=== PATIENT | male | born 1940 | race Caucasian/White ===

== ENCOUNTER 2019-12-15 11:42 | Emergency (ER) | payer MEDICARE, OTHER ==
[2019-12-15] MEDS ORDERED: ACETAMINOPHEN 325 MG TABLET PO ONE (11:57)
--- NOTE | 2019-12-15 12:24 | EKG REPORT ---
SEVERITY:- NORMAL ECG - SINUS RHYTHM : Confirmed by: Marsha Flores MD 15-Dec-2019 12:24:13
[2019-12-15 12:26] LABS: HEMATOCRIT 48.2 % (37.9-51.0); HEMOGLOBIN 16.9 g/dL (13.5-17.0); MEAN CORPUSCULAR HEMOGLOBIN 31.7 pg (27.0-33.4); MEAN CORPUSCULAR HGB CONC 35.1 g/dL (32.0-36.0); MEAN CORPUSCULAR VOLUME 90 fl (80-97); PLATELET COUNT 164 10^3/uL (150-450); RED BLOOD COUNT 5.33 10^6/uL (4.35-5.55); RED CELL DISTRIBUTION WIDTH 13.5 % (11.5-14.0)
[2019-12-15 12:40] LABS: ALBUMIN 4.7 g/dL (3.5-5.0); ALKALINE PHOSPHATASE 60 U/L (38-126); ANION GAP 8 (5-19); ASPARTATE AMINO TRANSFERASE 33 U/L (17-59); BILIRUBIN,DIRECT 0.1 mg/dL (0.0-0.4); BILIRUBIN,TOTAL 1.1 mg/dL (0.2-1.3); BLOOD UREA NITROGEN 20 mg/dL (7-20); CALCIUM 9.7 mg/dL (8.4-10.2); CARBON DIOXIDE 28 mmol/L (22-30); CHLORIDE 99 mmol/L (98-107); GLUCOSE 116 mg/dL (75-110); POTASSIUM 4.4 mmol/L (3.6-5.0)
[2019-12-15 12:43] LABS: INTERNATIONAL RATION (INR) 0.97; PROTHROMBIN TIME 13.1 SEC (11.4-15.4)
--- NOTE | 2019-12-15 12:50 | RADIOLOGY REPORT (SQ) ---
EXAM DESCRIPTION: CHEST SINGLE VIEW IMAGES COMPLETED DATE/TIME: 12/15/2019 12:40 pm REASON FOR STUDY: weakness COMPARISON: None. EXAM PARAMETERS: NUMBER OF VIEWS: One view. TECHNIQUE: Single frontal radiographic view of the chest acquired. RADIATION DOSE: NA LIMITATIONS: None. FINDINGS: LUNGS AND PLEURA: No opacities, masses or pneumothorax. No pleural effusion. MEDIASTINUM AND HILAR STRUCTURES: No masses. Contour normal. HEART AND VASCULAR STRUCTURES: Heart normal in size. Normal vasculature. BONES: No acute findings. HARDWARE: None in the chest. OTHER: No other significant finding. IMPRESSION: NO ACUTE RADIOGRAPHIC FINDING IN THE CHEST. TECHNICAL DOCUMENTATION: JOB ID: [id number] 2010 [employer]- All Rights Reserved Reading location - IP/workstation name: [email or web address]
[2019-12-15 12:56] LABS: ABSOLUTE LYMPHOCYTES# (MANUAL) 1.1 10^3/uL (0.5-4.7); ABSOLUTE MONOCYTES # (MANUAL) 1.8 10^3/uL (0.1-1.4); BASOPHILS % (MANUAL) 0 % (0-2); EOSINOPHILS % (MANUAL) 0 % (0-6); LYMPHOCYTES % (MANUAL) 7 % (13-45); MONOCYTES % (MANUAL) 12 % (3-13); PLATELET COMMENT ADEQUATE; RBC MORPHOLOGY COMMENT NORMO-CYTIC/CHROMIC; SEGMENTED NEUTROPHILS % (MAN) 81 % (42-78); TOTAL CELLS COUNTED 100
[2019-12-15 13:02] LABS: APPEARANCE,URINE SLIGHTLY-CLOUDY; BILIRUBIN,URINE NEGATIVE (NEGATIVE); COLOR,URINE AMBER; GLUCOSE, URINE NEGATIVE (NEGATIVE); KETONES,URINE TRACE mg/dL (NEGATIVE); PROTEIN,URINE 30 mg/dL (NEGATIVE); URINE SPECIFIC GRAVITY 1.029
[2019-12-15] MEDS ORDERED: NORMAL SALINE 500 ML IV ONE (14:21)
--- NOTE | 2019-12-15 14:21 | ER Document Report ---
ED Fever - General Chief Complaint: Fever Stated Complaint: WEAKNESS Time Seen by Provider: 12/15/19 14:02 Mode of Arrival: Wheelchair Information source: Patient Notes: Patient is a 79-year-old male comes emergency room complaining of fatigue. Patient states he started feeling bad approximately 3 weeks ago he had talked his primary care provider that he had had increasing fatigue along with mild dizziness. He states that the doctor told him that it could be his blood pressure medication causing it. Patient states is gotten worse over the last few days. He states he is noticed these not being on the walk on his treadmill and he thinks is more from being tired than being short of breath but has a little shortness of breath. Patient denies having any fever he did not know until he arrived in the emergency room today had a temp of 102.0. He only has a past medical history pertinent for hypertension and hypothyroidism. He denies any history of cardiac disease. Patient does not smoke. He lives at home with a member of the [employer] that helps take care of him. He has had no sick contacts. He has had no contact with anyone he knows of that has had the coronavirus. TRAVEL OUTSIDE OF THE [place] IN LAST 30 DAYS: No - HPI Onset: Other - 3 weeks worse past 3 days Onset/Duration: Gradual Quality of pain: Achy Severity: None Pain Level: Denies Context: denies: Cough Associated symptoms: Fever, Weakness Similar symptoms previously: Yes Recently seen / treated by doctor: Yes - Related Data Allergies/Adverse Reactions: No Known Allergies Allergy (Verified 12/15/19 12:59) Past Medical History - General Information source: Patient - Social History Smoking Status: Never Smoker Chew tobacco use (# tins/day): No Frequency of alcohol use: None Drug Abuse: None Lives with: Friend Family History: Reviewed & Not Pertinent - Past Medical History Cardiac Medical History: Reports: Hx Hypercholesterolemia, Hx Hypertension Review of Systems - Review of Systems Constitutional: See HPI, Fever, Weakness EENT: No symptoms reported Cardiovascular: No symptoms reported Respiratory: No symptoms reported Gastrointestinal: No symptoms reported Genitourinary: No symptoms reported Male Genitourinary: No symptoms reported Musculoskeletal: No symptoms reported Skin: No symptoms reported Hematologic/Lymphatic: No symptoms reported Neurological/Psychological: No symptoms reported -: Yes All other systems reviewed and negative Physical Exam - Vital signs Vitals: Temp Pulse Resp BP Pulse Ox 102.9 F H 89 16 142/71 H 98 12/15/19 11:58 12/15/19 11:58 12/15/19 11:58 12/15/19 11:58 12/15/19 11:58 Interpretation: Hypotensive - Notes Notes: PHYSICAL EXAMINATION: GENERAL: Patient is a frail-appearing 79-year-old male who is in no apparent distress on examination this afternoon. Patient answers questions appropriately he just appears tired. HEAD: Atraumatic, normocephalic. EYES: Pupils equal round and reactive to light, extraocular movements intact, sclera anicteric, conjunctiva are normal. ENT: Examination head and upper airway showed nasal mucosa be mildly erythematous and edematous no rhinorrhea noted. No frontal or maxillary sinus tenderness to palpation. Bilateral TMs normal no retraction or bulging. Posterior pharynx shows some mild erythema but no exudates uvula is midline erythema no exudate and airways patent. NECK: Normal range of motion, supple without lymphadenopathy LUNGS: Auscultation patient's lungs show bilateral breath sounds with breath sounds decreased throughout but no rhonchi rales or wheeze are heard on auscultation. HEART: Regular rate and rhythm without murmurs ABDOMEN: Soft, nontender, nondistended abdomen. No guarding, no rebound. No masses appreciated. Musculoskeletal: Normal range of motion, no pitting or edema. No cyanosis. NEUROLOGICAL: Normal speech, normal gait. Normal sensory, motor exams PSYCH: Normal mood, normal affect. SKIN: Warm, Dry, normal turgor, no rashes or lesions noted. Course - Re-evaluation Re-evalutation: 12/15/19 16:15 Original concern for probable patient was due to be admitted however we ambulated patient and his saturations never dropped below 96. We gave him a half a liter of fluids and he perked up. And he feels like he is ready to home. Given that his labs have all come back relatively normal with the exception of a white count of 15,000 I am going to go ahead and send him home on some Zithromax. You know his chest x-ray was negative for any acute findings I feel at 71 years old justifiable that he if this is an early pneumonia and has not been picked up at this time that the Zithromax may actually improve his outcome. I have discussed with the patient in depth that he needs to go home self quarantine until such time as he gets a negative test result. Of also informed him since he does have a houseguest that they will need to be wearing mask and social distance must be observed. Have highly recommended him that he get a thermometer if he does not have 1 and alternate Tylenol and Motrin every 4 hours to keep his fever down. I have also highly explained to him the need to keep hydrated. He also understands that should he not be able to control the fever or he gets short of breath he is to return to ER for reevaluation. - Vital Signs Vital signs: Temp Pulse Resp BP Pulse Ox 99.1 F 89 32 H 146/74 H 95 12/15/19 14:37 12/15/19 11:58 12/15/19 12:14 12/15/19 12:13 12/15/19 12:22 - Laboratory Result Diagrams: 12/15/19 12:05 12/15/19 12:05 Laboratory results interpreted by me: 12/15/19 12/15/19 12/15/19 12:05 12:05 12:05 WBC 15.0 H Seg Neuts % (Manual) 81 H Lymphocytes % (Manual) 7 L Abs Neuts (Manual) 12.2 H Abs Monocytes (Manual) 1.8 H Sodium 135.3 L Glucose 116 H Urine Protein 30 H Urine Ketones TRACE H Urine Urobilinogen 2.0 H Urine Ascorbic Acid 40 H Discharge - Discharge Clinical Impression: Fever Qualifiers: Fever type: unspecified Qualified Code(s): R50.9 - Fever, unspecified Condition: Stable Disposition: HOME, SELF-CARE Instructions: Acetaminophen, Viral Syndrome ([facility]), Ibuprofen (General) ([facility]) Additional Instructions: As we discussed is highly important at this time that you go home and treat yourself as if you have the coronavirus. The reason is you have spiked a fever with no known cause. So the best thing for you and people surrounding you is to stay and to wear a mask. Since you live with someone in your house I highly recommend that both of you wear a mask at all times and that you keep social distancing norms of at least 6 foot. You should alternate Tylenol and Motrin about every 4 hours to keep your fever down. You should drink fluids to keep yourself hydrated to include water juice tea Gatorade. And you should contact your primary care provider tomorrow for her to set up an appointment for continuation of care. Should you spike a fever or have any concerns or should get short of breath return to ER for reevaluation. Prescriptions: Azithromycin [Zithromax 250 mg Tablet] 250 mg PO ASDIR PRN #6 tablet PRN Reason: Referrals: [facility] [Provider Group] - Follow up as needed
[2019-12-15 15:39] LABS: A TYPE INFLUENZA AG NEGATIVE (NEGATIVE); B INFLUENZA AG NEGATIVE (NEGATIVE)
[2019-12-15 17:13] VITALS: BP 135/71
== END 2019-12-15 17:16 | disposition home or self-care (01) ==
LOC: ER 11:42
DX: R50.9 Fever, unspecified (principal); R53.83 Other fatigue; R42 Dizziness and giddiness; R06.02 Shortness of breath; R53.1 Weakness; I10 Essential (primary) hypertension; Z20.828 Contact with and (suspected) exposure to other viral communicable diseases
CPT/HCPCS: 93005; 99284; 96360; 36415; 87040; 83605; 85025; 85610; 80053; 81001; 84484; 87804; 71045; 93010; U0003; A9270; J7040; C9803; 87635

== ENCOUNTER 2019-12-17 15:35 | Observation (INO) | payer MEDICARE, OTHER ==
[2019-12-17] MEDS ORDERED: NORMAL SALINE 1000 ML 1,000 ML IV ONE (19:20)
--- NOTE | 2019-12-17 19:21 | ER Document Report ---
ED General - General Mode of Arrival: Wheelchair Information source: Patient TRAVEL OUTSIDE OF THE [place] IN LAST 30 DAYS: No - HPI Onset: Last week Onset/Duration: Sudden Quality of pain: No pain Severity: None Pain Level: Denies Associated symptoms: None, Weakness Exacerbated by: Denies Relieved by: Denies Similar symptoms previously: Yes Recently seen / treated by doctor: Yes <JOSE FARIA T - Last Filed: 12/18/19 00:10> <MAIRA CAPMOS - Last Filed: 12/18/19 02:43> - General Chief Complaint: General Weakness Stated Complaint: FEVER Time Seen by Provider: 12/17/19 18:37 Primary Care Provider: KWASI VILLALPANDO MD [Primary Care Provider] - Follow up as needed Notes: Patient is a 79-year-old male who returns to the emergency room with a complaint of spiking a fever today at 2 PM at home. Originally I saw patient here in the emergency room on December 15, 2019 with the same kind of complaint. At that time he had also complained of being dizzy for the past 3 weeks states that his primary care Dr. Kwasi Villalpando at told him that was probably his blood pressure medications and they were going to work on it. Although patient when he got he re to the emergency room did not complain of having a fever but had a oral temp here in the emergency room of 102.0. I was working in pod 5 and received patient because he had COVID symptoms. I did an extensive work-up with patient and his chest x-ray was negative his urine was negative there was no source for a fever. I did culture him prior to letting him go home but informed him he needed to self isolate. Patient understood and decided to go home. I did inform him should he have any concerns or problems he is to return to ER for reevaluation. So that is what he said today he did he came back because he spiked a temp to 102.0 at home once again. Prior to patient leaving the hospital 2 days ago because of the he had a 15,000 white count and no association I could find and thinking that he probably had been exposed to coronavirus I went ahead and placed him on a Z-Lino. Patient states he has been feeling better until the spike of the fever. He also says that he has not done much while being home except lay around and be tired. His only medical history is of hypertension and hypothyroidism. He denies any history of cardiac or respiratory problems. (JOSE FARIA) - Related Data Allergies/Adverse Reactions: No Known Allergies Allergy (Verified 12/15/19 12:59) Past Medical History - General Information source: Patient - Social History Smoking Status: Former Smoker Cigarette use (# per day): No Chew tobacco use (# tins/day): No Smoking Education Provided: No Frequency of alcohol use: None Drug Abuse: None Lives with: Friend Family History: Reviewed & Not Pertinent Patient has homicidal ideation: No - Past Medical History Cardiac Medical History: Reports: Hx Hypercholesterolemia, Hx Hypertension <JOSE FARIA - Last Filed: 12/18/19 00:10> Review of Systems - Review of Systems Constitutional: Fever, Malaise, Weakness EENT: No symptoms reported Cardiovascular: No symptoms reported Respiratory: No symptoms reported Gastrointestinal: No symptoms reported Genitourinary: No symptoms reported Male Genitourinary: No symptoms reported Musculoskeletal: No symptoms reported Skin: No symptoms reported Hematologic/Lymphatic: No symptoms reported Neurological/Psychological: No symptoms reported -: Yes All other systems reviewed and negative <JOSE FARIA - Last Filed: 12/18/19 00:10> Physical Exam - Vital signs Interpretation: Hypotensive <JOSE FARIA - Last Filed: 12/18/19 00:10> - Vital signs Vitals: Temp Pulse Resp BP Pulse Ox 99.0 F 81 18 104/59 L 97 12/17/19 16:05 12/17/19 16:05 12/17/19 16:05 12/17/19 16:05 12/17/19 16:05 - Notes Notes: PHYSICAL EXAMINATION: GENERAL: Patient is a thin appearing 71-year-old male who is in no distress on examination. HEAD: Atraumatic, normocephalic. EYES: Pupils equal round and reactive to light, extraocular movements intact, sclera anicteric, conjunctiva are normal. ENT: Nares patent, oropharynx clear without exudates. Moist mucous membranes. NECK: Normal range of motion, supple without lymphadenopathy LUNGS: Auscultation patient's lungs shows bilateral breath sounds which are increased throughout no rhonchi rales or wheeze are heard. HEART: Regular rate and rhythm without murmurs ABDOMEN: Soft, nontender, nondistended abdomen. No guarding, no rebound. No masses appreciated. Musculoskeletal: Normal range of motion, no pitting or edema. No cyanosis. NEUROLOGICAL: Normal speech, normal gait. Normal sensory, motor exams PSYCH: Normal mood, normal affect. SKIN: Warm, Dry, normal turgor, no rashes or lesions noted. (JOSE FARIA) Course - Laboratory Result Diagrams: 12/17/19 22:33 12/17/19 22:33 <JOSE FARIA - Last Filed: 12/18/19 00:10> - Laboratory Result Diagrams: 12/17/19 22:33 12/17/19 22:33 - Diagnostic Test Radiology reviewed: Image reviewed, Reports reviewed <MAIRA CAMPOS - Last Filed: 12/18/19 02:43> - Re-evaluation Re-evalutation: 12/18/19 00:17 This time patient has slight change in his findings. First his chest x-ray was normal there was no acute findings. Patient's EKG did not show any major changes as well either sinus rhythm was seen on both. But patient's troponin c jessica back bumped slightly to 0.039 with a CK of 249. I discussed the case with Dr. Campos and he looked over the entire chart and did feel that since patient is continuing with the same complaint of fatigue and that he is had a slight bump in his enzymes that probably warrant talking to the hospitalist about admission and rule out. Patient is still having no chest pain or shortness of breath today. (JOSE FARIA) 12/18/19 02:29 patient's 2nd troponin uptrending although only slightly I am unsure as to why the patient's cardiac profile is abnormal and to why he is running fever w/ significant fatigue I have spoke with Dr Patel regarding admission given ongoing lab abnormalities (MAIRA CAMPOS) - Vital Signs Vital signs: Temp Pulse Resp BP Pulse Ox 98.2 F 69 17 151/80 H 97 12/17/19 23:12 12/17/19 23:12 12/17/19 23:12 12/17/19 23:12 12/17/19 23:12 - Laboratory Laboratory results interpreted by me: 12/17/19 12/17/19 12/17/19 20:35 20:35 22:33 Plt Count 128 L Lymph % (Auto) 9.6 L Seg Neutrophils % 80.0 H Sodium AST ALT Creatine Kinase NT-Pro-B Natriuret Pep 746 H Total Protein Albumin Urine Protein 100 H Urine Ascorbic Acid 40 H 12/17/19 22:33 Plt Count Lymph % (Auto) Seg Neutrophils % Sodium 135.6 L AST 90 H ALT 71 H Creatine Kinase 249 H NT-Pro-B Natriuret Pep Total Protein 6.1 L Albumin 3.3 L Urine Protein Urine Ascorbic Acid - EKG Interpretation by Me Additional EKG results interpreted by me: 12/18/19 02:30 NSR, rate of 70, no ST segment changes, no T wave abnormalities (MAIRA CAMPOS) Discharge <JOSE FARIA - Last Filed: 12/18/19 00:10> - Discharge Admitting Provider: Jorge (Hospitalist) Unit Admitted: Medical Floor <MAIRA CAMPOS - Last Filed: 12/18/19 02:43> - Discharge Clinical Impression: Weakness, Elevated troponin Fever Qualifiers: Fever type: unspecified Qualified Code(s): R50.9 - Fever, unspecified Condition: Stable Disposition: ADMITTED OBSERVATION Referrals: KWASI VILLALPANDO MD [Primary Care Provider] - Follow up as needed
--- NOTE | 2019-12-17 20:16 | RADIOLOGY REPORT (SQ) ---
EXAM DESCRIPTION: Chest x-ray Completed date and time 12/15/2019 12:40 PM CLINICAL HISTORY: 79 years Male Fatigue COMPARISON: 12/15/2019 FINDINGS: The cardiomediastinal silhouette appears unremarkable. No consolidating infiltrates or pleural effusions. No pneumothorax. IMPRESSION: No acute abnormality is identified.
[2019-12-17 21:10] LABS: INTERNATIONAL RATION (INR) 0.99; PROTHROMBIN TIME 13.3 SEC (11.4-15.4)
[2019-12-17 21:21] LABS: APPEARANCE,URINE SLIGHTLY-CLOUDY; BILIRUBIN,URINE NEGATIVE (NEGATIVE); COLOR,URINE YELLOW; GLUCOSE, URINE NEGATIVE (NEGATIVE); KETONES,URINE NEGATIVE (NEGATIVE); LEUKOCYTE ESTERASE,URINE NEGATIVE (NEGATIVE); NITRITE,URINE NEGATIVE (NEGATIVE); PROTEIN,URINE 100 mg/dL (NEGATIVE); URINE SPECIFIC GRAVITY 1.021; UROBILINOGEN,URINE NEGATIVE mg/dL (<2.0)
[2019-12-17 21:42] LABS: CREATINE KINASE MB 1.86 ng/mL (<4.55)
[2019-12-17 22:07] LABS: TROPONIN I 0.039 ng/mL
[2019-12-17 22:44] LABS: ABSOLUTE EOSINOPHILS # (AUTO) 0.2 10^3/uL (0.0-0.6); ABSOLUTE LYMPHOCYTES (AUTO) 0.7 10^3/uL (0.5-4.7); ABSOLUTE MONOCYTES (AUTO) 0.5 10^3/uL (0.1-1.4); ABSOLUTE NEUT (AUTO) 5.6 10^3/uL (1.7-8.2); BASOPHILS % (AUTO) 0.5 % (0-2); EOSINOPHILS % (AUTO) 2.3 % (0-6); HEMATOCRIT 43.6 % (37.9-51.0); HEMOGLOBIN 15.2 g/dL (13.5-17.0); LYMPHOCYTES % (AUTO) 9.6 % (13-45); MEAN CORPUSCULAR HEMOGLOBIN 31.3 pg (27.0-33.4); MEAN CORPUSCULAR VOLUME 90 fl (80-97); MONOCYTES % (AUTO) 7.6 % (3-13); PLATELET COUNT 128 10^3/uL (150-450); RED BLOOD COUNT 4.86 10^6/uL (4.35-5.55); RED CELL DISTRIBUTION WIDTH 13.9 % (11.5-14.0); TOTAL CELLS COUNTED % (AUTO) 100 %
[2019-12-17 23:31] LABS: ALBUMIN 3.3 g/dL (3.5-5.0); ALKALINE PHOSPHATASE 69 U/L (38-126); ANION GAP 6 (5-19); ASPARTATE AMINO TRANSFERASE 90 U/L (17-59); BILIRUBIN,TOTAL 0.5 mg/dL (0.2-1.3); BLOOD UREA NITROGEN 18 mg/dL (7-20); CALCIUM 8.4 mg/dL (8.4-10.2); CARBON DIOXIDE 27 mmol/L (22-30); CHLORIDE 103 mmol/L (98-107); CREATINE KINASE 249 U/L (55-170); GLUCOSE 96 mg/dL (75-110); POTASSIUM 3.8 mmol/L (3.6-5.0); TOTAL PROTEIN 6.1 g/dL (6.3-8.2)
[2019-12-18] MEDS ORDERED: GUAIFENESIN SYRP 200 MG/10 ML UDC PO PRN (03:20)
[2019-12-18] MEDS ORDERED: MAGNESIUM HYDROXIDE SUSP 30 ML UDCUP PO PRN (03:20)
[2019-12-18] MEDS ORDERED: MORPHINE SULFATE 10 MG/ML INJ IV PRN ×4 (03:20→03:51)
[2019-12-18] MEDS ORDERED: ACETAMINOPHEN 325 MG TABLET PO PRN (03:20)
[2019-12-18] MEDS ORDERED: MELATONIN 5 MG TABLET PO PRN (03:20)
[2019-12-18] MEDS ORDERED: LORAZEPAM INJ 2 MG/1 ML VIAL IV PRN (03:20)
[2019-12-18] MEDS ORDERED: MAG HYDROX/AL HYDROX/SIMETH SUSP 30 ML UDCUP PO PRN (03:20)
[2019-12-18] MEDS ORDERED: ONDANSETRON HCL INJ/PF 4 MG/2 ML SDV IV PRN (03:26)
[2019-12-18] MEDS ORDERED: LEVALBUTEROL HCL NEB 0.63 MG/3 ML AMPUL NEB PRN (03:26)
[2019-12-18] MEDS ORDERED: FAMOTIDINE 20 MG TABLET PO ONE (04:00)
--- NOTE | 2019-12-18 04:37 | PDOC H&P ---
History of Present Illness Admission Date/PCP: 12/18/2019 02:52 KWASI VILLALPANDO Patient complains of: Generalized weakness History of Present Illness: BRENNAN JAY is a 79 year old male who presented emergency room with a one- week history of generalized weakness. He admits the gradual onset and progressive worsening of (moderate over the last 3 days) continuous generalized weakness over the course of the last week. His weakness has been accompanied by continuous fatigue and has been associated with intermittent episodes of fever. He further admits a 3-week history of treatment by his primary care provider for dizziness due to his blood pressure medication. He denies other associated or accompanying signs and symptoms. He was seen in ER 2 days prior to his current visit and was treated with a azithromycin and released to home after being tested for COVID-19. His COVID-19 test was negative and he "felt a little better" until he had another episode of fever just prior to coming to the emergency room. He denies prior similar episodes. He has not identified any aggravating or ameliorating factors for his generalized weakness. In the emergency room he was found to have a minimal elevation of his troponin level and a mild increase in his liver function tests. His BNP was noted to be mildly elevated. Patient was subsequently admitted to the hospital on observation stat us for further evaluation and treatment. Past Medical History Cardiac Medical History: Reports: Hyperlipidema, Hypertension Denies: Atrial Fibrillation, Congestive Heart Failure, Coronary Artery Disease, DVT, Myocardial Infarction, Pulmonary Embolism Pulmonary Medical History: Denies: Asthma, Chronic Obstructive Pulmonary Disease (COPD) EENT Medical History: Denies: Cataracts, Ears - Hearing aids Neurological Medical History: Denies: Hemorrhagic CVA, Ischemic CVA, Multiple Sclerosis, Seizures Endocrine Medical History: Reports: Hypothyroidism Denies: Diabetes Mellitus Type 1, Diabetes Mellitus Type 2, Hyperthyroidism Renal/ Medical History: Denies: Chronic Kidney Disease, Nephrolithiasis Malignancy Medical History: Reports: None GI Medical History: Denies: Cirrhosis, Crohn's Disease, Gastroesophageal Reflux Disease, Hepatitis, Peptic Ulcer Disease, Ulcerative Colitis Musculoskeltal Medical History: Denies: Arthritis, Gout Skin Medical History: Denies: Eczema, Psoriasis Psychiatric Medical History: Denies: Alcohol Dependency, Substance Abuse, Tobacco Dependency Traumatic Medical History: Reports: None Hematology: Denies: Anemia, Bleeding Tendencies Infectious Medical History: Reports: None Past Surgical History Past Surgical History: Reports: Appendectomy, Other - Rhinoplasty for nasal septal deviation Social History Information Source: Patient Lives with: Friend Smoking Status: Former Smoker Electronic Cigarette use?: No Frequency of Alcohol Use: None Hx Recreational Drug Use: No Drugs: None Hx Prescription Drug Abuse: No - Advance Directive Resuscitation Status: Full Code Surrogate healthcare decision maker:: Kelly Lopez Family History Family History: CAD - Father, DM - Sister, Malignancy - Mother. denies: Hypertension Parental Family History Reviewed: Yes Children Family History Reviewed: No Sibling(s) Family History Reviewed.: Yes Medication/Allergy Home Medications: Azithromycin [Zithromax 250 mg Tablet] 250 mg PO ASDIR PRN #6 tablet 12/15/19 Levothyroxine Sodium [Levo-T] 12/15/19 Metoprolol Succinate 12/15/19 Simvastatin 12/15/19 Allergies/Adverse Reactions: No Known Allergies Allergy (Verified 12/15/19 12:59) Review of Systems Constitutional: PRESENT: as per HPI, fatigue, fever(s), weakness. ABSENT: chil ls Eyes: ABSENT: visual disturbances, other - Eye pain Ears: ABSENT: hearing changes, other - Ear pain Nose, Mouth, and Throat: ABSENT: headache(s), sore throat Cardiovascular: ABSENT: chest pain, edema, orthropnea, palpitations Respiratory: ABSENT: cough, dyspnea Gastrointestinal: ABSENT: abdominal pain, constipation, diarrhea, nausea, vomiting Genitourinary: ABSENT: dysuria, hematuria Musculoskeletal: PRESENT: as per HPI, muscle weakness - Generalized. ABSENT: back pain, joint swelling Integumentary: ABSENT: pruritus, rash Neurological: PRESENT: as per HPI, dizziness. ABSENT: confusion, convulsions, focal weakness, memory loss, syncope Psychiatric: ABSENT: anxiety, depression Endocrine: ABSENT: cold intolerance, heat intolerance Hematologic/Lymphatic: ABSENT: easy bleeding, easy bruising Allergic/Immunologic: ABSENT: seasonal rhinorrhea Physical Exam Vital Signs: Temp Pulse Resp BP Pulse Ox 98.6 F 76 16 145/72 H 96 12/18/19 02:43 12/18/19 02:43 12/18/19 02:43 12/18/19 02:43 12/18/19 02:43 Intake & Output 12/16/19 12/17/19 12/18/19 23:59 23:59 23:59 Intake Total 1000 Balance 1000 Weight 70.307 kg General appearance: PRESENT: no acute distress, cooperative Head exam: PRESENT: atraumatic, normocephalic Eye exam: PRESENT: conjunctiva pink. ABSENT: conjunctival injection, scleral icterus Ear exam: PRESENT: normal external ear exam. ABSENT: bleeding, drainage Mouth exam: PRESENT: dry mucosa, neck supple Neck exam: ABSENT: thyromegaly, tracheal deviation Respiratory exam: PRESENT: symmetrical, unlabored Cardiovascular exam: PRESENT: RRR. ABSENT: clicks, gallop, rubs Pulses: PRESENT: normal radial pulses, normal dorsalis pedis pul Vascular exam: PRESENT: normal capillary refill. ABSENT: pallor GI/Abdominal exam: PRESENT: normal bowel sounds, soft. ABSENT: tenderness Rectal exam: PRESENT: deferred Extremities exam: ABSENT: joint swelling, pedal edema Musculoskeletal exam: ABSENT: deformity, dislocation Neurological exam: PRESENT: alert, oriented to person, oriented to place, oriented to time, oriented to situation, CN II-XII grossly intact. ABSENT: motor sensory deficit Psychiatric exam: PRESENT: appropriate affect, normal mood Skin exam: PRESENT: dry, intact, warm. ABSENT: jaundice, rash, urticaria Results Laboratory Results: 12/17/19 22:33 12/17/19 22:33 12/17/19 12/17/19 12/17/19 20:35 20:35 20:35 WBC Cancelled RBC Cancelled Hgb Cancelled Hct Cancelled MCV Cancelled MCH Cancelled MCHC Cancelled RDW Cancelled Plt Count Cancelled Seg Neutrophils % Cancelled Sodium Cancelled Potassium Cancelled Chloride Cancelled Carbon Dioxide Cancelled Anion Gap Cancelled BUN Cancelled Creatinine Cancelled Est GFR ( Amer) Cancelled Est GFR (Non-Af Amer) Cancelled Glucose Cancelled Calcium Cancelled Total Bilirubin Cancelled AST Cancelled Alkaline Phosphatase Cancelled Total Protein Cancelled Albumin Cancelled Urine Color YELLOW Urine Appearance SLIGHTLY-CLOUDY Urine pH 5.0 Ur Specific [place] 1.021 Urine Protein 100 H Urine Glucose (UA) NEGATIVE Urine Ketones NEGATIVE Urine Blood NEGATIVE Urine Nitrite NEGATIVE Ur Leukocyte Esterase NEGATIVE Urine WBC (Auto) 4 Urine RBC (Auto) 6 12/17/19 12/17/19 22:33 22:33 WBC 7.0 RBC 4.86 Hgb 15.2 Hct 43.6 MCV 90 MCH 31.3 MCHC 35.0 RDW 13.9 Plt Count 128 L Seg Neutrophils % 80.0 H Sodium 135.6 L Potassium 3.8 Chloride 103 Carbon Dioxide 27 Anion Gap 6 BUN 18 Creatinine 0.82 Est GFR ( Amer) > 60 Est GFR (Non-Af Amer) Glucose 96 Calcium 8.4 Total Bilirubin 0.5 AST 90 H Alkaline Phosphatase 69 Total Protein 6.1 L Albumin 3.3 L Urine Color Urine Appearance Urine pH Ur Specific [place] Urine Protein Urine Glucose (UA) Urine Ketones Urine Blood Urine Nitrite Ur Leukocyte Esterase Urine WBC (Auto) Urine RBC (Auto) 12/17/19 12/17/19 12/17/19 20:35 20:35 22:33 Creatine Kinase Cancelled 249 H CK-MB (CK-2) 1.86 Troponin I 0.039 NT-Pro-B Natriuret Pep 746 H 12/18/19 01:12 Creatine Kinase CK-MB (CK-2) Troponin I 0.045 NT-Pro-B Natriuret Pep Impressions: Chest X-Ray 12/17/19 19:20 IMPRESSION: No acute abnormality is identified. Assessment and Plan - Diagnosis (1) Weakness Is this a current diagnosis for this admission?: Yes (2) Dizziness Is this a current diagnosis for this admission?: Yes (3) Fever Qualifiers: Fever type: unspecified Qualified Code(s): R50.9 - Fever, unspecified Is this a current diagnosis for this admission?: Yes (4) Elevated troponin Is this a current diagnosis for this admission?: Yes (5) Elevated brain natriuretic peptide (BNP) level Is this a current diagnosis for this admission?: Yes (6) Hypertension Qualifiers: Hypertension type: essential hypertension Qualified Code(s): I10 - Essential (primary) hypertension Is this a current diagnosis for this admission?: Yes (7) Hyperlipidemia Qualifiers: Hyperlipidemia type: unspecified Qualified Code(s): E78.5 - Hyperlipidemia, unspecified Is this a current diagnosis for this admission?: Yes (8) Hypothyroidism Qualifiers: Hypothyroidism type: unspecified Qualified Code(s): E03.9 - Hypothyroidism, unspecified Is this a current diagnosis for this admission?: Yes - Plan Summary Summary: Patient will be admitted observation status on the medical floor in a telemetry bed where he received routine supportive and symptomatic cares. A cardiology consultation will be obtained with Dr. Myles. He will be treated with IV fluid using D5LR initially. He will use Ativan 1 mg IV every 4 hours as needed for anxiety or restlessness. He will use morphine sulfate 2 to 4 mg IV every 2 hours as needed for pain. He will be on a cardiac diet. A thyroid profile, lipid profile and serial cardiac enzymes will be obtained. Additional laboratory and/or radiographic evaluations will be obtained as needed. - Time Time Spent with patient: 15-24 minutes Medications reviewed and adjusted accordingly: Yes Anticipated Discharge Disposition: Home, Self Care Anticipated Discharge Timeframe: within 36 hours - Inpatient Certification Based on my medical assessment, after consideration of the patient's comorbidities, presenting symptoms, or acuity I expect that the services needed warrant INPATIENT care.: No I certify that my determination is in accordance with my understanding of Medicare's requirements for reasonable and necessary INPATIENT services [42 CFR 412.3e].: No
[2019-12-18] MEDS ORDERED: DEXTROSE 5%-LACTATED RINGERS 1,000 ML IV PRN (05:17)
[2019-12-18] MEDS ORDERED: METOPROLOL TARTRATE PF/INJ 5 MG/5 ML SDV IV PRN (05:18)
[2019-12-18] MEDS ORDERED: FAMOTIDINE 20 MG TABLET ONE (06:31)
[2019-12-18] MEDS: HEPARIN SOD (PORCINE) 5,000 UNIT/ML 1 ML VIAL SUBCUT SCH ×3 (06:32→21:58)
[2019-12-18 08:05] LABS: HEMATOCRIT 38.9 % (37.9-51.0); HEMOGLOBIN 13.6 g/dL (13.5-17.0); MEAN CORPUSCULAR HEMOGLOBIN 31.3 pg (27.0-33.4); MEAN CORPUSCULAR VOLUME 89 fl (80-97); PLATELET COUNT 133 10^3/uL (150-450); RED BLOOD COUNT 4.35 10^6/uL (4.35-5.55); RED CELL DISTRIBUTION WIDTH 13.9 % (11.5-14.0); WHITE BLOOD COUNT 5.1 10^3/uL (4.0-10.5)
[2019-12-18 08:31] LABS: ALBUMIN 2.6 g/dL (3.5-5.0); ALKALINE PHOSPHATASE 56 U/L (38-126); ANION GAP 7 (5-19); ASPARTATE AMINO TRANSFERASE 75 U/L (17-59); BILIRUBIN,TOTAL 0.4 mg/dL (0.2-1.3); BLOOD UREA NITROGEN 13 mg/dL (7-20); CALCIUM 7.8 mg/dL (8.4-10.2); CARBON DIOXIDE 24 mmol/L (22-30); CHLORIDE 103 mmol/L (98-107); CHOLESTEROL 97.76 mg/dL (0-200); CREATINE KINASE 168 U/L (55-170); GLUCOSE 135 mg/dL (75-110); POTASSIUM 3.7 mmol/L (3.6-5.0); TOTAL PROTEIN 5.3 g/dL (6.3-8.2); TRIGLYCERIDES 311 mg/dL (<150)
[2019-12-18 08:37] LABS: CREATINE KINASE MB 1.67 ng/mL (<4.55); TROPONIN I 0.055 ng/mL
[2019-12-18 08:46] LABS: DIRECT LDL < 30 mg/dL (<100); FREE T3 2.42 pg/mL (2.77-5.27); VLDL CHOLESTEROL 62.2 mg/dL (10-31)
[2019-12-18 09:00] LABS: THYROID STIMULATING HORMONE 2.49 uIU/mL (0.47-4.68)
[2019-12-18] MEDS: METOPROLOL SUCCINATE 50 MG TAB.SR.24H PO SCH (10:32)
[2019-12-18] MEDS: DOCUSATE SODIUM 100 MG CAPSULE PO SCH ×2 (10:36→17:09)
[2019-12-18] MEDS: FAMOTIDINE 20 MG TABLET PO SCH ×2 (10:36→21:58)
--- NOTE | 2019-12-18 10:47 | PDOC CONSULTATION ---
Consultation Consult Date: 12/18/19 Attending physician:: JANETTE BARRAGAN Provider Consulted: HAKEEM GONZALEZ Consult reason:: Indeterminate troponin History of Present Illness Admission Date/PCP: 12/18/19 03:11 KWASI VILLALPANDO History of Present Illness: BRENNAN JAY is a 79 year old male with history of hypertension, hypothyroidism, hyperlipidemia, remote smoker who quit 60 years ago and without family history of premature coronary artery disease who is consulted to our service for evaluation of detectable troponins. The patient presented to our emergency room yesterday with a one-week history of generalized weakness with a gradual onset and progressive worsening. This morning he is found resting in bed comfortably and without any symptoms. He specifically denies chest pain, shortness of breath, ANNA, PND, lower extremity edema, palpitations, syncope and presyncope. He is physically active at home and walks on his treadmill at a regular pace for 20 to 30 minutes daily without any ischemic or heart failure symptoms. He is also able to clean his house and work in his yard without angina, angina equivalents or heart failure symptoms. Physical exam on 12/18/2019: GENERAL: Pleasant and conversational. Oriented x3 with normal mood. Not in acute distress. Well groomed and well developed. HEENT: Normocephalic, atraumatic. Pupils equal. Sclerae anicteric. Oropharynx moist. NECK: No JVD. No carotid bruits. LUNGS: Clear to auscultation bilaterally. Normal respiratory effort without the use of accessory muscles or intercostal retractions. CARDIOVASCULAR: Regular rate and rhythm, normal S1 and S2 without murmurs, rubs, or gallops. PMI not displaced. ABDOMEN: No masses or tenderness to palpation. No bruit. No splenomegaly or hepatomegaly. No abdominal aorta bruit noted. EXTREMITIES: No edema, no cyanosis, no clubbing. +2 pulses femoral and pedal pulses bilaterally. SKIN: No lesions or rashes. MUSCULOSKELETAL: No chest tenderness to palpation. NEUROLOGIC: Nonfocal. No gross sensory or motor deficits bilateral upper or lo wer extremities. Past Medical History Cardiac Medical History: Reports: Hyperlipidema, Hypertension Denies: Atrial Fibrillation, Congestive Heart Failure, Coronary Artery Disease, DVT, Myocardial Infarction, Pulmonary Embolism Pulmonary Medical History: Denies: Asthma, Chronic Obstructive Pulmonary Disease (COPD) EENT Medical History: Denies: Cataracts, Ears - Hearing aids Neurological Medical History: Denies: Hemorrhagic CVA, Ischemic CVA, Multiple Sclerosis, Seizures Endocrine Medical History: Reports: Hypothyroidism Denies: Diabetes Mellitus Type 1, Diabetes Mellitus Type 2, Hyperthyroidism Renal/ Medical History: Denies: Chronic Kidney Disease, Nephrolithiasis Malignancy Medical History: Reports: None GI Medical History: Denies: Cirrhosis, Crohn's Disease, Gastroesophageal Reflux Disease, Hepatitis, Peptic Ulcer Disease, Ulcerative Colitis Musculoskeltal Medical History: Denies: Arthritis, Gout Skin Medical History: Denies: Eczema, Psoriasis Psychiatric Medical History: Denies: Alcohol Dependency, Depression, Substance Abuse, Tobacco Dependency Traumatic Medical History: Reports: None Hematology: Denies: Anemia, Bleeding Tendencies Infectious Medical History: Reports: None Past Surgical History Past Surgical History: Reports: None, Appendectomy, Other - Rhinoplasty for nasal septal deviation Social History Lives with: Friend Smoking Status: Former Smoker Electronic Cigarette use?: No Frequency of Alcohol Use: None Hx Recreational Drug Use: No Drugs: None Hx Prescription Drug Abuse: No - Advance Directive Resuscitation Status: Full Code Family History Family History: CAD - Father, DM - Sister, Malignancy - Mother. denies: Hypertension Parental Family History Reviewed: Yes Children Family History Reviewed: Yes Sibling(s) Family History Reviewed.: Yes Medication/Allergy Home Medications: Levothyroxine Sodium [Levo-T] 25 mcg PO DAILY 12/15/19 Metoprolol Succinate 100 mg PO DAILY 12/15/19 Simvastatin 40 mg PO DAILY 12/15/19 Ascorbic Acid [Vitamin C 500 mg Tablet] 500 mg PO DAILY 12/18/19 Cholecalciferol (Vitamin D3) [Vitamin D3 1000 Unit Tablet] 1,000 unit PO DAILY 12/18/19 Multivitamin [Tab-A-Ernesto (Multiple Vitamin) Tablet] 1 tab PO DAILY 12/18/19 Allergies/Adverse Reactions: propofol Allergy (Verified 12/18/19 05:36) Pruritis Physical Exam Vital Signs: Temp Pulse Resp BP Pulse Ox 98.8 F 80 17 155/76 H 97 12/18/19 04:05 12/18/19 04:05 12/18/19 04:05 12/18/19 04:05 12/18/19 04:05 Intake & Output 12/17/19 12/18/19 12/19/19 06:59 06:59 06:59 Intake Total 1240 Balance 1240 Weight 72.4 kg Results Laboratory Results: 12/17/19 22:33 12/17/19 22:33 12/17/19 12/17/19 12/17/19 20:35 20:35 20:35 WBC Cancelled RBC Cancelled Hgb Cancelled Hct Cancelled MCV Cancelled MCH Cancelled MCHC Cancelled RDW Cancelled Plt Count Cancelled Seg Neutrophils % Cancelled Sodium Cancelled Potassium Cancelled Chloride Cancelled Carbon Dioxide Cancelled Anion Gap Cancelled BUN Cancelled Creatinine Cancelled Est GFR ( Amer) Cancelled Est GFR (Non-Af Amer) Cancelled Glucose Cancelled Calcium Cancelled Total Bilirubin Cancelled AST Cancelled Alkaline Phosphatase Cancelled Total Protein Cancelled Albumin Cancelled Urine Color YELLOW Urine Appearance SLIGHTLY-CLOUDY Urine pH 5.0 Ur Specific [place] 1.021 Urine Protein 100 H Urine Glucose (UA) NEGATIVE Urine Ketones NEGATIVE Urine Blood NEGATIVE Urine Nitrite NEGATIVE Ur Leukocyte Esterase NEGATIVE Urine WBC (Auto) 4 Urine RBC (Auto) 6 12/17/19 12/17/19 22:33 22:33 WBC 7.0 RBC 4.86 Hgb 15.2 Hct 43.6 MCV 90 MCH 31.3 MCHC 35.0 RDW 13.9 Plt Count 128 L Seg Neutrophils % 80.0 H Sodium 135.6 L Potassium 3.8 Chloride 103 Carbon Dioxide 27 Anion Gap 6 BUN 18 Creatinine 0.82 Est GFR ( Amer) > 60 Est GFR (Non-Af Amer) Glucose 96 Calcium 8.4 Total Bilirubin 0.5 AST 90 H Alkaline Phosphatase 69 Total Protein 6.1 L Albumin 3.3 L Urine Color Urine Appearance Urine pH Ur Specific [place] Urine Protein Urine Glucose (UA) Urine Ketones Urine Blood Urine Nitrite Ur Leukocyte Esterase Urine WBC (Auto) Urine RBC (Auto) 12/17/19 12/17/19 12/17/19 20:35 20:35 22:33 Creatine Kinase Cancelled 249 H CK-MB (CK-2) 1.86 Troponin I 0.039 NT-Pro-B Natriuret Pep 746 H 12/18/19 01:12 Creatine Kinase CK-MB (CK-2) Troponin I 0.045 NT-Pro-B Natriuret Pep Impressions: Chest X-Ray 12/17/19 19:20 IMPRESSION: No acute abnormality is identified. 12/17/19 22:33 12/17/19 22:33 MCV 90 fl (80-97) 12/17/19 22:33 MCH 31.3 pg (27.0-33.4) 12/17/19 22:33 MCHC 35.0 g/dL (32.0-36.0) 12/17/19 22:33 RDW 13.9 % (11.5-14.0) 12/17/19 22:33 Seg Neutrophils % 80.0 % (42-78) H 12/17/19 22:33 Chloride 103 mmol/L (98-107) 12/17/19 22:33 Carbon Dioxide 27 mmol/L (22-30) 12/17/19 22:33 Anion Gap 6 (5-19) 12/17/19 22:33 Est GFR ( Amer) > 60 (>60) 12/17/19 22:33 Est GFR (Non-Af Amer) Cancelled 12/17/19 20:35 Glucose 96 mg/dL (75-110) 12/17/19 22:33 Calcium 8.4 mg/dL (8.4-10.2) 12/17/19 22:33 Total Bilirubin 0.5 mg/dL (0.2-1.3) 12/17/19 22:33 AST 90 U/L (17-59) H 12/17/19 22:33 Alkaline Phosphatase 69 U/L (38-126) 12/17/19 22:33 Total Protein 6.1 g/dL (6.3-8.2) L 12/17/19 22:33 Albumin 3.3 g/dL (3.5-5.0) L 12/17/19 22:33 Urine Color YELLOW 12/17/19 20:35 Urine Appearance SLIGHTLY-CLOUDY 12/17/19 20:35 Urine pH 5.0 (5.0-9.0) 12/17/19 20:35 Ur Specific [place] 1.021 12/17/19 20:35 Urine Protein 100 mg/dL (NEGATIVE) H 12/17/19 20:35 Urine Glucose (UA) NEGATIVE mg/dL (NEGATIVE) 12/17/19 20:35 Urine Ketones NEGATIVE mg/dL (NEGATIVE) 12/17/19 20:35 Urine Blood NEGATIVE (NEGATIVE) 12/17/19 20:35 Urine Nitrite NEGATIVE (NEGATIVE) 12/17/19 20:35 Ur Leukocyte Esterase NEGATIVE (NEGATIVE) 12/17/19 20:35 Urine WBC (Auto) 4 /HPF 12/17/19 20:35 Urine RBC (Auto) 6 /HPF 12/17/19 20:35 12/17/19 12/17/19 12/17/19 20:35 20:35 22:33 Creatine Kinase Cancelled 249 H CK-MB (CK-2) 1.86 Troponin I 0.039 NT-Pro-B Natriuret Pep 746 H 12/18/19 01:12 Creatine Kinase CK-MB (CK-2) Troponin I 0.045 NT-Pro-B Natriuret Pep Current Medication List Generic Name Dose Route Start Last Admin Trade Name Freq PRN Reason Stop Dose Admin Acetaminophen 650 mg 12/18/19 03:20 Tylenol 325 Mg Tablet PO 01/17/20 03:19 Q4HP PRN For headache, pain or fever Al Hydrox/Mg Hydrox/Simethicone 30 ml 12/18/19 03:20 Maalox Plus Susp 30 Udcup PO 01/17/20 03:19 Q6HP PRN HEARTBURN Docusate Sodium 100 mg 12/18/19 10:00 Colace 100 Mg Capsule PO 01/17/20 09:59 BID JUAN R Famotidine 20 mg 12/18/19 10:00 Pepcid 20 Mg Tablet PO 01/17/20 09:59 Q12 JUAN R Guaifenesin 200 mg 12/18/19 03:20 Robitussin Syrup 200 Mg/10 Ml Ud Cup PO 01/17/20 03:19 Q4HP PRN COUGH Heparin Sodium (Porcine) 5,000 unit 12/18/19 06:00 12/18/19 06:32 Heparin Inj 5,000 Units/Ml 1 Ml Vial SUBCUT 01/17/20 05:59 Not Given Q8 JUAN R Levalbuterol HCl 0.63 mg 12/18/19 03:26 Xopenex Neb 0.63 Mg/3 Ml Ampul NEB 01/17/20 03:25 RTQ2HP PRN SHORTNESS OF BREATH Lorazepam 1 mg 12/18/19 03:20 Ativan Inj 2 Mg/1 Ml Vial IV 12/25/19 03:19 Q4HP PRN ANXIETY/AGITATION Magnesium Hydroxide 30 ml 12/18/19 03:20 Milk Of Magnesia 30 Ml Udcup PO 01/17/20 03:19 HSP PRN FOR CONSTIPATION Melatonin 5 mg 12/18/19 03:20 Melatonin 5 Mg Tablet PO 01/17/20 03:19 HSP PRN SLEEP OR INSOMNIA Metoprolol Tartrate 5 mg 12/18/19 05:18 Lopressor Inj/Pf 5 Mg/5 Ml Sdv IV 01/17/20 05:17 Q4HP PRN Give For Sbp > 160 / Dbp > 100 Morphine Sulfate 2 mg 12/18/19 03:50 Morphine 10 Mg/Ml Inj IV 12/25/19 03:49 Q2HP PRN PAIN SCALE OF 2 Morphine Sulfate 3 mg 12/18/19 03:51 Morphine 10 Mg/Ml Inj IV 12/25/19 03:50 Q2HP PRN FOR PAIN SCALE 3-4 Morphine Sulfate 4 mg 12/18/19 03:51 Morphine 10 Mg/Ml Inj IV 12/25/19 03:50 Q2HP PRN PAIN SCALE OF 5 Ondansetron HCl 4 mg 12/18/19 03:26 Zofran Inj/Pf 4 Mg/2 Ml Sdv IV 01/17/20 03:25 Q4HP PRN FOR NAUSEA/VOMITING Sodium Chloride 2.5 ml 12/18/19 06:00 12/18/19 06:24 Saline Flush 2.5 Ml Monoject Prefil Syrin IV 01/17/20 05:59 2.5 ml Q8 JUAN R Administration Discontinued Medications Generic Name Dose Route Start Last Admin Trade Name Freq PRN Reason Stop Dose Admin Famotidine 20 mg 12/18/19 04:00 12/18/19 06:32 Pepcid 20 Mg Tablet PO 12/18/19 04:01 Not Given NOW ONE Famotidine Confirm 12/18/19 06:31 12/18/19 06:43 Pepcid 20 Mg Tablet Administered 12/18/19 06:32 Not Given Dose 20 mg .ROUTE .STK-MED ONE Sodium Chloride 1,000 mls @ 0 mls/hr 12/17/19 19:20 12/17/19 21:51 Nacl 0.9% 1000 Ml Iv Soln IV 12/17/19 19:21 Infused BOLUS ONE Infusion Wide Open Dextrose/Lactated Ringer's 1,000 mls @ 250 mls/hr 12/18/19 05:17 12/18/19 06:22 D5lr 1000 Ml Iv Soln IV 250 mls/hr CONTINUOUS PRN Administration THIS MED IS NOT "PRN" Morphine Sulfate 2 - 4 mg 12/18/19 03:20 Morphine 10 Mg/Ml Inj IV 12/25/19 03:19 Q2HP PRN See protocol Protocol Assessment & Plan - Diagnosis (1) Troponin I above reference range Plan: 79-year-old male with cardiac risk factors of age, gender, hypertension and hyperlipidemia who was admitted for evaluation of generalized weakness and who has remained asymptomatic since admission. His cardiac troponins are detectable however in the indeterminate range. His troponin level is actually nondiagnostic particularly in the setting of no ischemic symptoms whatsoever particularly when he exercises on his treadmill for up to 30 minutes every day at a regular pace without any angina, anginal equivalents or heart failure symptoms. Given that his most recent troponin level has been uptrending I recommend keeping him under observation for now and keep trending troponins. Further management will be guided by his symptoms and troponin level. Given his cardiac risk factors I recommend echocardiography.
--- NOTE | 2019-12-18 13:33 | PDOC PROGRESS REPORT ---
Subjective Progress Note for:: 12/18/19 Subjective:: Denies chest pain/chest pressure/shortness of breath. Complains of continued generalized weakness Reason For Visit: ELEVATED TROPONIN,ELEVATED BNP,GENERALIZED WEAKNES Physical Exam Vital Signs: Temp Pulse Resp BP Pulse Ox 100.7 F H 77 20 122/68 96 12/18/19 12:19 12/18/19 12:21 12/18/19 12:19 12/18/19 12:21 12/18/19 12:21 Intake & Output 12/17/19 12/18/19 12/19/19 06:59 06:59 06:59 Intake Total 1240 240 Output Total 150 Balance 1240 90 Weight 72.4 kg General appearance: PRESENT: no acute distress, cooperative, well-developed, well-nourished Head exam: PRESENT: atraumatic, normocephalic Eye exam: PRESENT: conjunctiva pink Mouth exam: PRESENT: moist, tongue midline Neck exam: ABSENT: JVD Respiratory exam: PRESENT: clear to auscultation darinel, symmetrical, unlabored. ABSENT: accessory muscle use Cardiovascular exam: PRESENT: RRR, +S1, +S2 Pulses: PRESENT: normal carotid pulses, normal radial pulses Vascular exam: PRESENT: normal capillary refill GI/Abdominal exam: PRESENT: normal bowel sounds, soft. ABSENT: distended, tenderness Rectal exam: PRESENT: deferred Extremities exam: ABSENT: pedal edema Musculoskeletal exam: PRESENT: ambulatory Neurological exam: PRESENT: alert, awake, oriented to person, oriented to place, oriented to time, oriented to situation, CN II-XII grossly intact Psychiatric exam: PRESENT: appropriate affect, normal mood. ABSENT: agitated, anxious Skin exam: PRESENT: dry, normal color, warm Results Laboratory Results: 12/18/19 07:30 12/18/19 07:30 12/17/19 12/17/19 12/17/19 20:35 20:35 20:35 WBC Cancelled RBC Cancelled Hgb Cancelled Hct Cancelled MCV Cancelled MCH Cancelled MCHC Cancelled RDW Cancelled Plt Count Cancelled Seg Neutrophils % Cancelled Sodium Cancelled Potassium Cancelled Chloride Cancelled Carbon Dioxide Cancelled Anion Gap Cancelled BUN Cancelled Creatinine Cancelled Est GFR ( Amer) Cancelled Est GFR (Non-Af Amer) Cancelled Glucose Cancelled Calcium Cancelled Magnesium Total Bilirubin Cancelled AST Cancelled Alkaline Phosphatase Cancelled Total Protein Cancelled Albumin Cancelled Triglycerides Cholesterol LDL Cholesterol Direct VLDL Cholesterol HDL Cholesterol TSH Free T3 pg/mL Urine Color YELLOW Urine Appearance SLIGHTLY-CLOUDY Urine pH 5.0 Ur Specific [place] 1.021 Urine Protein 100 H Urine Glucose (UA) NEGATIVE Urine Ketones NEGATIVE Urine Blood NEGATIVE Urine Nitrite NEGATIVE Ur Leukocyte Esterase NEGATIVE Urine WBC (Auto) 4 Urine RBC (Auto) 6 12/17/19 12/17/19 12/18/19 22:33 22:33 07:30 WBC 7.0 5.1 RBC 4.86 4.35 Hgb 15.2 13.6 Hct 43.6 38.9 MCV 90 89 MCH 31.3 31.3 MCHC 35.0 35.0 RDW 13.9 13.9 Plt Count 128 L 133 L Seg Neutrophils % 80.0 H Sodium 135.6 L Potassium 3.8 Chloride 103 Carbon Dioxide 27 Anion Gap 6 BUN 18 Creatinine 0.82 Est GFR ( Amer) > 60 Est GFR (Non-Af Amer) Glucose 96 Calcium 8.4 Magnesium Total Bilirubin 0.5 AST 90 H Alkaline Phosphatase 69 Total Protein 6.1 L Albumin 3.3 L Triglycerides Cholesterol LDL Cholesterol Direct VLDL Cholesterol HDL Cholesterol TSH Free T3 pg/mL Urine Color Urine Appearance Urine pH Ur Specific [place] Urine Protein Urine Glucose (UA) Urine Ketones Urine Blood Urine Nitrite Ur Leukocyte Esterase Urine WBC (Auto) Urine RBC (Auto) 12/18/19 12/18/19 07:30 07:30 WBC RBC Hgb Hct MCV MCH MCHC RDW Plt Count Seg Neutrophils % Sodium 133.8 L Potassium 3.7 Chloride 103 Carbon Dioxide 24 Anion Gap 7 BUN 13 Creatinine 0.64 Est GFR ( Amer) > 60 Est GFR (Non-Af Amer) Glucose 135 H Calcium 7.8 L Magnesium 1.8 Total Bilirubin 0.4 AST 75 H Alkaline Phosphatase 56 Total Protein 5.3 L Albumin 2.6 L Triglycerides 311 H Cholesterol 97.76 LDL Cholesterol Direct < 30 VLDL Cholesterol 62.2 H HDL Cholesterol 8 L TSH 2.49 Free T3 pg/mL 2.42 L Urine Color Urine Appearance Urine pH Ur Specific [place] Urine Protein Urine Glucose (UA) Urine Ketones Urine Blood Urine Nitrite Ur Leukocyte Esterase Urine WBC (Auto) Urine RBC (Auto) 12/17/19 12/17/19 12/17/19 20:35 20:35 22:33 Creatine Kinase Cancelled 249 H CK-MB (CK-2) 1.86 Troponin I 0.039 NT-Pro-B Natriuret Pep 746 H 12/18/19 12/18/19 12/18/19 01:12 07:30 07:30 Creatine Kinase Cancelled CK-MB (CK-2) 1.67 Troponin I 0.045 0.055 NT-Pro-B Natriuret Pep 12/18/19 07:30 Creatine Kinase 168 CK-MB (CK-2) Troponin I NT-Pro-B Natriuret Pep Impressions: Chest X-Ray 12/17/19 19:20 IMPRESSION: No acute abnormality is identified. Assessment and Plan - Diagnosis (1) Weakness Is this a current diagnosis for this admission?: Yes Plan: It is unclear the origin of patient's generalized weakness however we will continue to pursue cardiac workup to rule out cardiac etiology (2) Elevated troponin Is this a current diagnosis for this admission?: Yes Plan: Cardiology input appreciated Will get echocardiogram Continue serial troponin (3) Hypertension Qualifiers: Hypertension type: essential hypertension Qualified Code(s): I10 - Essential (primary) hypertension Is this a current diagnosis for this admission?: Yes Plan: Adequate BP control Continue metoprolol succinate 100 mg p.o. daily (4) Dyslipidemia Is this a current diagnosis for this admission?: Yes Plan: Restart home statin (simvastatin 40 mg p.o. daily) (5) Hypothyroidism Qualifiers: Hypothyroidism type: unspecified Qualified Code(s): E03.9 - Hypothyroidism, unspecified Is this a current diagnosis for this admission?: Yes Plan: Restart home replacement therapy (levothyroxine 0.025 mg p.o. daily) (6) Hyponatremia Is this a current diagnosis for this admission?: Yes Plan: Patient is asymptomatic No treatment indicated at this time Monitor (7) Hyperglycemia Is this a current diagnosis for this admission?: Yes Plan: No treatment indicated at this time If fasting glucose greater than 200 consider adding FS BS with SSI correction scale Monitor with a.m. labs (8) Thrombocytopenia Is this a current diagnosis for this admission?: Yes Plan: Thrombocytopenia is minor No signs of active hemorrhage or thrombosis No treatment indicated Monitor periodically - Plan Summary Summary: Patient will be admitted observation status on the medical floor in a telemetry bed where he received routine supportive and symptomatic cares. A cardiology consultation will be obtained with Dr. Myles. He will be treated with IV fluid using D5LR initially. He will use Ativan 1 mg IV every 4 hours as needed for anxiety or restlessness. He will use morphine sulfate 2 to 4 mg IV every 2 hours as needed for pain. He will be on a cardiac diet. A thyroid profile, lipid profile and serial cardiac enzymes will be obtained. Additional laboratory and/or radiographic evaluations will be obtained as needed. - Time Time Spent with patient: 25-34 minutes Medications reviewed and adjusted accordingly: Yes Anticipated Discharge Disposition: Home, Self Care Anticipated Discharge Timeframe: within 48 hours
[2019-12-18 14:39] LABS: CREATINE KINASE MB 1.12 ng/mL (<4.55); TROPONIN I 0.057 ng/mL
--- NOTE | 2019-12-18 19:19 | XCELERA REPORT ---
[address] [address] Transthoracic Echocardiogram Report Name: BRENNAN JAY Age: 79 yrs Gender: Male : 1940 Patient Status: Inpatient Patient Location: [address] [place] [address] Study Date: 12/18/2019 05:59 PM Height: 69 in Weight: 159 lb BSA: 1.9 m2 Procedure: A complete two-dimensional transthoracic echocardiogram was performed (2D, M-mode, spectral and color flow Doppler). The study was technically adequate with some images being suboptimal in quality. Images from the parasternal window were difficult to obtain and are suboptimal in quality. Reason For Study: Elevated troponin Ordering Physician: KVNG GILES Performed By: Liat Stewart Interpretation Summary The left ventricle is grossly normal size. There is mild concentric left ventricular hypertrophy. Left ventricular systolic function is normal. The Ejection Fraction estimate is 65-70%. Doppler measurements suggest normal left ventricular diastolic function. The left ventricular wall motion is normal. Mikd LAE. Trace MR, trace TR. No prior studies for comparison. MMode/2D Measurements & Calculations RVDd: 3.4 cm LVIDd: 4.9 cm FS: 38.2 % Ao root diam: 2.6 cm IVSd: 1.1 cm LVIDs: 3.0 cm EDV(Teich): Ao root area: 112.0 ml LVPWd: 1.2 cm 5.3 cm2 ESV(Teich): 35.6 mlLA dimension: 4.2 cm EF(Teich): 68.2 % LVOT diam: 2.1 cm LVLd ap4: 7.5 cm SV(MOD-sp4): LVOT area: EDV(MOD-sp4): 47.0 ml 3.3 cm2 67.0 ml LVLs ap4: 5.4 cm ESV(MOD-sp4): 20.0 ml EF(MOD-sp4): 70.1 % Doppler Measurements & Calculations MV E max krys: MV P1/2t max krys: Ao V2 max: AI max krys: 91.3 cm/sec 99.1 cm/sec 191.4 cm/sec 235.5 cm/sec MV A max krys: MV P1/2t: 98.2 msec Ao max PG: AI max P.2 mmHg 86.9 cm/sec 14.7 mmHg MVA(P1/2t): 2.2 cm2 AI dec slope: MV E/A: 1.1 MV dec slope: BHAVNA(V,D): 2.6 [id number] cm/sec2 295.6 cm/sec2 AI P1/2t: 548.7 msec MV dec time: 0.19 sec LV V1 max PG: SV(LVOT): 90.7 ml PA V2 max: TR max krys: 8.6 mmHg 109.6 cm/sec 238.5 cm/sec LV V1 mean PG: PA max PG: TR max P.8 mmHg 4.0 mmHg 4.8 mmHg LV V1 max: 146.6 cm/sec LV V1 mean: 84.1 cm/sec LV V1 VTI: 27.2 cm AV P1/2t-pr_phl: MV P1/2t-pr_phl: 548.7 msec 98.2 msec Left Ventricle The left ventricle is grossly normal size. There is mild concentric left ventricular hypertrophy. Left ventricular systolic function is normal. The Ejection Fraction estimate is 65-70%. Doppler measurements suggest normal left ventricular diastolic function. The left ventricular wall motion is normal. Right Ventricle The right ventricle is normal in size, thickness and function. The right ventricular systolic function is normal. Atria The right atrium is normal. The left atrium is mildly dilated. Mitral Valve There is mild mitral annular calcification. Mitral valve prolapse cannot be excluded. There is no mitral valve stenosis. There is a trace amount of mitral regurgitation. Aortic Valve The aortic valve is moderately calcified. There is no aortic valvular vegetation. There is aortic sclerosis without aortic stenosis. No hemodynamically significant valvular aortic stenosis. There is a trace to mild amount of aortic regurgitation. Tricuspid Valve The tricuspid valve is not well visualized, but is grossly normal. There is no tricuspid valve prolapse. There is no tricuspid stenosis. There is a trace or physiologic amount of tricuspid regurgitation. Pulmonic Valve The pulmonic valve is not well seen, but is grossly normal. There is no vegetation on the pulmonic valve. There is no pulmonic valvular stenosis. There is no pulmonic valvular regurgitation. Effusions There is no pericardial effusion. There is no pleural effusion. : KVNG GILES Antonio
[2019-12-18 20:07] LABS: CREATINE KINASE MB 1.08 ng/mL (<4.55); TROPONIN I 0.059 ng/mL
[2019-12-19] MEDS: HEPARIN SOD (PORCINE) 5,000 UNIT/ML 1 ML VIAL SUBCUT SCH (06:09)
[2019-12-19 07:48] LABS: HEMATOCRIT 43.8 % (37.9-51.0); HEMOGLOBIN 15.1 g/dL (13.5-17.0); MEAN CORPUSCULAR HEMOGLOBIN 31.3 pg (27.0-33.4); MEAN CORPUSCULAR HGB CONC 34.4 g/dL (32.0-36.0); MEAN CORPUSCULAR VOLUME 91 fl (80-97); PLATELET COUNT 161 10^3/uL (150-450); RED BLOOD COUNT 4.82 10^6/uL (4.35-5.55); RED CELL DISTRIBUTION WIDTH 14.2 % (11.5-14.0); WHITE BLOOD COUNT 4.8 10^3/uL (4.0-10.5)
[2019-12-19 08:08] LABS: ALBUMIN 3.3 g/dL (3.5-5.0); ALKALINE PHOSPHATASE 68 U/L (38-126); ANION GAP 8 (5-19); ASPARTATE AMINO TRANSFERASE 97 U/L (17-59); BILIRUBIN,TOTAL 0.5 mg/dL (0.2-1.3); BLOOD UREA NITROGEN 12 mg/dL (7-20); CALCIUM 8.7 mg/dL (8.4-10.2); CARBON DIOXIDE 27 mmol/L (22-30); CHLORIDE 104 mmol/L (98-107); GLUCOSE 92 mg/dL (75-110); POTASSIUM 3.4 mmol/L (3.6-5.0); TOTAL PROTEIN 6.2 g/dL (6.3-8.2)
--- NOTE | 2019-12-19 09:30 | PDOC PROGRESS REPORT ---
Subjective Progress Note for:: 12/19/19 Subjective:: Patient states that he feels better this a.m. He reports that he has more strength. Denies chest pain and shortness of breath Reason For Visit: ELEVATED TROPONIN,ELEVATED BNP,GENERALIZED WEAKNES Physical Exam Vital Signs: Temp Pulse Resp BP Pulse Ox 97.6 F 68 19 132/68 H 99 12/19/19 08:08 12/19/19 08:08 12/19/19 08:08 12/19/19 08:08 12/19/19 08:08 Intake & Output 12/18/19 12/19/19 12/20/19 06:59 06:59 06:59 Intake Total 1240 2150 Output Total 150 Balance 1240 2000 Weight 72.4 kg 72.4 kg General appearance: PRESENT: no acute distress, cooperative, well-developed, well-nourished Head exam: PRESENT: atraumatic, normocephalic Eye exam: PRESENT: conjunctiva pink Mouth exam: PRESENT: moist, tongue midline Neck exam: ABSENT: JVD Respiratory exam: PRESENT: clear to auscultation darinel, symmetrical, unlabored. ABSENT: accessory muscle use Cardiovascular exam: PRESENT: RRR, +S1, +S2 Pulses: PRESENT: normal radial pulses Vascular exam: PRESENT: normal capillary refill GI/Abdominal exam: PRESENT: normal bowel sounds, soft. ABSENT: distended, tenderness Rectal exam: PRESENT: deferred Extremities exam: ABSENT: calf tenderness Musculoskeletal exam: PRESENT: ambulatory, full ROM Neurological exam: PRESENT: alert, awake, oriented to person, oriented to place, oriented to time, oriented to situation, CN II-XII grossly intact. ABSENT: motor sensory deficit Psychiatric exam: PRESENT: appropriate affect, normal mood. ABSENT: agitated, anxious Skin exam: PRESENT: dry, normal color, warm Results Laboratory Results: 12/19/19 07:30 12/19/19 07:30 12/19/19 12/19/19 07:30 07:30 WBC 4.8 RBC 4.82 Hgb 15.1 Hct 43.8 MCV 91 MCH 31.3 MCHC 34.4 RDW 14.2 H Plt Count 161 Sodium 138.5 Potassium 3.4 L Chloride 104 Carbon Dioxide 27 Anion Gap 8 BUN 12 Creatinine 0.70 Est GFR ( Amer) > 60 Glucose 92 Calcium 8.7 Magnesium 2.1 Total Bilirubin 0.5 AST 97 H Alkaline Phosphatase 68 Total Protein 6.2 L Albumin 3.3 L 12/17/19 12/17/19 12/17/19 20:35 20:35 22:33 Creatine Kinase Cancelled 249 H CK-MB (CK-2) 1.86 Troponin I 0.039 NT-Pro-B Natriuret Pep 746 H 12/18/19 12/18/19 12/18/19 01:12 07:30 07:30 Creatine Kinase Cancelled CK-MB (CK-2) 1.67 Troponin I 0.045 0.055 NT-Pro-B Natriuret Pep 12/18/19 12/18/19 12/18/19 07:30 13:53 13:53 Creatine Kinase 168 143 CK-MB (CK-2) 1.12 Troponin I 0.057 NT-Pro-B Natriuret Pep 12/18/19 12/18/19 12/18/19 18:39 19:28 19:28 Creatine Kinase 139 CK-MB (CK-2) 1.08 Troponin I 0.058 0.059 NT-Pro-B Natriuret Pep 12/19/19 12/19/19 01:27 07:30 Creatine Kinase CK-MB (CK-2) Troponin I 0.054 0.037 NT-Pro-B Natriuret Pep Impressions: Chest X-Ray 12/17/19 19:20 IMPRESSION: No acute abnormality is identified. Assessment and Plan - Diagnosis (1) Weakness Is this a current diagnosis for this admission?: Yes Plan: It is unclear the origin of patient's generalized weakness however we will continue to pursue cardiac workup to rule out cardiac etiology Patient reports that he feels stronger today (2) Elevated troponin Is this a current diagnosis for this admission?: Yes Plan: Cardiology input appreciated Troponin trending down with peak of 0.059 Discussed case with software support analyst and will plan for stress test tomorrow (3) Hypertension Qualifiers: Hypertension type: essential hypertension Qualified Code(s): I10 - Essential (primary) hypertension Is this a current diagnosis for this admission?: Yes Plan: Adequate BP control Continue metoprolol succinate 100 mg p.o. daily (4) Dyslipidemia Is this a current diagnosis for this admission?: Yes Plan: Continue simvastatin 40 mg p.o. daily (5) Hypothyroidism Qualifiers: Hypothyroidism type: unspecified Qualified Code(s): E03.9 - Hypothyroidism, unspecified Is this a current diagnosis for this admission?: Yes Plan: Continue levothyroxine 0.025 mg p.o. daily (6) Hyponatremia Is this a current diagnosis for this admission?: Yes Plan: Serum sodium WNL this a.m. Monitor periodically (7) Hyperglycemia Is this a current diagnosis for this admission?: Yes Plan: Fasting glucose WNL this a.m. Monitor with a.m. labs (8) Thrombocytopenia Is this a current diagnosis for this admission?: Yes Plan: Platelet count WNL this a.m. No signs of active hemorrhage or thrombosis Monitor periodically - Time Time Spent with patient: 25-34 minutes Medications reviewed and adjusted accordingly: Yes Anticipated Discharge Disposition: Home, Self Care Anticipated Discharge Timeframe: within 36 hours
[2019-12-19] MEDS ORDERED: SIMVASTATIN 40 MG TABLET PO SCH (10:00)
[2019-12-19] MEDS ORDERED: MULTIVITAMIN TABLET PO SCH (10:00)
[2019-12-19] MEDS ORDERED: ASCORBIC ACID 500 MG TABLET PO SCH (10:00)
[2019-12-19] MEDS ORDERED: CHOLECALCIFEROL (D3) 1,000 UNIT (25 MCG) TABLET PO SCH (10:00)
[2019-12-19] MEDS ORDERED: POTASSIUM CHLORIDE 10 MEQ TABLET.ER PO ONE (10:00)
[2019-12-19] MEDS ORDERED: LEVOTHYROXINE SODIUM 0.025 MG TABLET PO SCH (10:00)
[2019-12-19] MEDS ORDERED: GLUCAGON,HUMAN RECOMB 1 MG INJ SUBCUT PRN (10:01)
[2019-12-19] MEDS ORDERED: DEXTROSE 40% GEL 15 GM TUBE PO PRN ×2 (10:01)
[2019-12-19] MEDS ORDERED: DEXTROSE 50%-WATER 25 GM/50 ML DISP.SYRIN IV PRN ×2 (10:01)
[2019-12-19] MEDS: FAMOTIDINE 20 MG TABLET PO SCH (10:07)
[2019-12-19] MEDS: METOPROLOL SUCCINATE 50 MG TAB.SR.24H PO SCH (10:11)
[2019-12-19] MEDS: DOCUSATE SODIUM 100 MG CAPSULE PO SCH (10:12)
[2019-12-19] MEDS ORDERED: ONDANSETRON HCL INJ/PF 4 MG/2 ML SDV IV PRN (13:00)
--- NOTE | 2019-12-19 13:30 | PDOC PROGRESS REPORT ---
Subjective Progress Note for:: 12/19/19 Subjective:: BRENNAN JAY is a 79 year old male with history of hypertension, hypothyroidism, hyperlipidemia, remote smoker who quit 60 years ago and without family history of premature coronary artery disease who is consulted to our service for evaluation of detectable troponins. The patient presented to our emergency room yesterday with a one-week history of generalized weakness with a gradual onset and progressive worsening. This morning he is found resting in bed comfortably and without any symptoms. He specifically denies chest pain, shortness of breath, ANNA, PND, lower extremity edema, palpitations, syncope and presyncope. He is physically active at home and walks on his treadmill at a regular pace for 20 to 30 minutes daily without any ischemic or heart failure symptoms. He is also able to clean his house and work in his yard without angina, angina equivalents or heart failure symptoms. 12/19/19: The patient had an uneventful night and continues to be asymptomatic from the cardiac standpoint. His troponin although detectable, it is in the indeterminate range and flat. Physical exam on 12/19/2019: GENERAL: Pleasant and conversational. Oriented x3 with normal mood. Not in acute distress. Well groomed and well developed. HEENT: Normocephalic, atraumatic. Pupils equal. Sclerae anicteric. Oropharynx moist. NECK: No JVD. No carotid bruits. LUNGS: Clear to auscultation bilaterally. Normal respiratory effort without the use of accessory muscles or intercostal retractions. CARDIOVASCULAR: Regular rate and rhythm, normal S1 and S2 without murmurs, rubs, or gallops. PMI not displaced. ABDOMEN: No masses or tenderness to palpation. No bruit. No splenomegaly or hepatomegaly. No abdominal aorta bruit noted. EXTREMITIES: No edema, no cyanosis, no clubbing. +2 pulses femoral and pedal pulses bilaterally. SKIN: No lesions or rashes. MUSCULOSKELETAL: No chest tenderness to palpation. NEUROLOGIC: Nonfocal. No gross sensory or motor deficits bilateral upper or lower extremities. Reason For Visit: ELEVATED TROPONIN,ELEVATED BNP,GENERALIZED WEAKNES Physical Exam Vital Signs: Temp Pulse Resp BP Pulse Ox 98.5 F 52 L 18 121/61 96 12/18/19 23:56 12/19/19 02:00 12/18/19 23:51 12/18/19 23:51 12/18/19 23:51 Intake & Output 12/18/19 12/19/19 12/20/19 06:59 06:59 06:59 Intake Total 1240 2150 Output Total 150 Balance 1240 2000 Weight 72.4 kg 72.4 kg Results Laboratory Results: 12/18/19 07:30 12/18/19 07:30 12/18/19 12/18/19 12/18/19 07:30 07:30 07:30 WBC 5.1 RBC 4.35 Hgb 13.6 Hct 38.9 MCV 89 MCH 31.3 MCHC 35.0 RDW 13.9 Plt Count 133 L Sodium 133.8 L Potassium 3.7 Chloride 103 Carbon Dioxide 24 Anion Gap 7 BUN 13 Creatinine 0.64 Est GFR ( Amer) > 60 Glucose 135 H Calcium 7.8 L Magnesium 1.8 Total Bilirubin 0.4 AST 75 H Alkaline Phosphatase 56 Total Protein 5.3 L Albumin 2.6 L Triglycerides 311 H Cholesterol 97.76 LDL Cholesterol Direct < 30 VLDL Cholesterol 62.2 H HDL Cholesterol 8 L TSH 2.49 Free T3 pg/mL 2.42 L 12/17/19 12/17/19 12/17/19 20:35 20:35 22:33 Creatine Kinase Cancelled 249 H CK-MB (CK-2) 1.86 Troponin I 0.039 NT-Pro-B Natriuret Pep 746 H 12/18/19 12/18/19 12/18/19 01:12 07:30 07:30 Creatine Kinase Cancelled CK-MB (CK-2) 1.67 Troponin I 0.045 0.055 NT-Pro-B Natriuret Pep 12/18/19 12/18/19 12/18/19 07:30 13:53 13:53 Creatine Kinase 168 143 CK-MB (CK-2) 1.12 Troponin I 0.057 NT-Pro-B Natriuret Pep 12/18/19 12/18/19 12/18/19 18:39 19:28 19:28 Creatine Kinase 139 CK-MB (CK-2) 1.08 Troponin I 0.058 0.059 NT-Pro-B Natriuret Pep 12/19/19 01:27 Creatine Kinase CK-MB (CK-2) Troponin I 0.054 NT-Pro-B Natriuret Pep Impressions: Chest X-Ray 12/17/19 19:20 IMPRESSION: No acute abnormality is identified. 12/18/19 07:30 12/18/19 07:30 MCV 89 fl (80-97) 12/18/19 07:30 MCH 31.3 pg (27.0-33.4) 12/18/19 07:30 MCHC 35.0 g/dL (32.0-36.0) 12/18/19 07:30 RDW 13.9 % (11.5-14.0) 12/18/19 07:30 Seg Neutrophils % 80.0 % (42-78) H 12/17/19 22:33 Chloride 103 mmol/L (98-107) 12/18/19 07:30 Carbon Dioxide 24 mmol/L (22-30) 12/18/19 07:30 Anion Gap 7 (5-19) 12/18/19 07:30 Est GFR ( Amer) > 60 (>60) 12/18/19 07:30 Est GFR (Non-Af Amer) Cancelled 12/17/19 20:35 Glucose 135 mg/dL (75-110) H 12/18/19 07:30 Calcium 7.8 mg/dL (8.4-10.2) L 12/18/19 07:30 Magnesium 1.8 mg/dL (1.6-2.3) 12/18/19 07:30 Total Bilirubin 0.4 mg/dL (0.2-1.3) 12/18/19 07:30 AST 75 U/L (17-59) H 12/18/19 07:30 Alkaline Phosphatase 56 U/L (38-126) 12/18/19 07:30 Total Protein 5.3 g/dL (6.3-8.2) L 12/18/19 07:30 Albumin 2.6 g/dL (3.5-5.0) L 12/18/19 07:30 Triglycerides 311 mg/dL (<150) H 12/18/19 07:30 Cholesterol 97.76 mg/dL (0-200) 12/18/19 07:30 LDL Cholesterol Direct < 30 mg/dL (<100) 12/18/19 07:30 VLDL Cholesterol 62.2 mg/dL (10-31) H 12/18/19 07:30 HDL Cholesterol 8 mg/dL (>40) L 12/18/19 07:30 TSH 2.49 uIU/mL (0.47-4.68) 12/18/19 07:30 Free T3 pg/mL 2.42 pg/mL (2.77-5.27) L 12/18/19 07:30 Urine Color YELLOW 12/17/19 20:35 Urine Appearance SLIGHTLY-CLOUDY 12/17/19 20:35 Urine pH 5.0 (5.0-9.0) 12/17/19 20:35 Ur Specific [place] 1.021 12/17/19 20:35 Urine Protein 100 mg/dL (NEGATIVE) H 12/17/19 20:35 Urine Glucose (UA) NEGATIVE mg/dL (NEGATIVE) 12/17/19 20:35 Urine Ketones NEGATIVE mg/dL (NEGATIVE) 12/17/19 20:35 Urine Blood NEGATIVE (NEGATIVE) 12/17/19 20:35 Urine Nitrite NEGATIVE (NEGATIVE) 12/17/19 20:35 Ur Leukocyte Esterase NEGATIVE (NEGATIVE) 12/17/19 20:35 Urine WBC (Auto) 4 /HPF 12/17/19 20:35 Urine RBC (Auto) 6 /HPF 12/17/19 20:35 12/17/19 12/17/19 12/17/19 20:35 20:35 22:33 Creatine Kinase Cancelled 249 H CK-MB (CK-2) 1.86 Troponin I 0.039 NT-Pro-B Natriuret Pep 746 H 12/18/19 12/18/19 12/18/19 01:12 07:30 07:30 Creatine Kinase Cancelled CK-MB (CK-2) 1.67 Troponin I 0.045 0.055 NT-Pro-B Natriuret Pep 12/18/19 12/18/19 12/18/19 07:30 13:53 13:53 Creatine Kinase 168 143 CK-MB (CK-2) 1.12 Troponin I 0.057 NT-Pro-B Natriuret Pep 12/18/19 12/18/19 12/18/19 18:39 19:28 19:28 Creatine Kinase 139 CK-MB (CK-2) 1.08 Troponin I 0.058 0.059 NT-Pro-B Natriuret Pep 12/19/19 01:27 Creatine Kinase CK-MB (CK-2) Troponin I 0.054 NT-Pro-B Natriuret Pep Current Medication List Generic Name Dose Route Start Last Admin Trade Name Freq PRN Reason Stop Dose Admin Acetaminophen 650 mg 12/18/19 03:20 12/18/19 21:56 Tylenol 325 Mg Tablet PO 01/17/20 03:19 650 mg Q4HP PRN Administration For headache, pain or fever Al Hydrox/Mg Hydrox/Simethicone 30 ml 12/18/19 03:20 Maalox Plus Susp 30 Udcup PO 01/17/20 03:19 Q6HP PRN HEARTBURN Ascorbic Acid 500 mg 12/19/19 10:00 Vitamin C 500 Mg Tablet PO 01/18/20 09:59 DAILY [facility] Cholecalciferol 1,000 unit 12/19/19 10:00 Vitamin D3 1000 Unit Tablet PO 01/18/20 09:59 DAILY [facility] Docusate Sodium 100 mg 12/18/19 10:00 12/18/19 17:09 Colace 100 Mg Capsule PO 01/17/20 09:59 Not Given BID [facility] Famotidine 20 mg 12/18/19 10:00 12/18/19 21:58 Pepcid 20 Mg Tablet PO 01/17/20 09:59 Not Given Q12 [facility] Guaifenesin 200 mg 12/18/19 03:20 Robitussin Syrup 200 Mg/10 Ml Ud Cup PO 01/17/20 03:19 Q4HP PRN COUGH Heparin Sodium (Porcine) 5,000 unit 12/18/19 06:00 12/19/19 06:09 Heparin Inj 5,000 Units/Ml 1 Ml Vial SUBCUT 01/17/20 05:59 Not Given Q8 [facility] Levalbuterol HCl 0.63 mg 12/18/19 03:26 Xopenex Neb 0.63 Mg/3 Ml Ampul NEB 01/17/20 03:25 RTQ2HP PRN SHORTNESS OF BREATH Levothyroxine Sodium 0.025 mg 12/19/19 10:00 Synthroid 0.025 Mg Tablet PO 01/18/20 09:59 DAILY JUAN R Lorazepam 1 mg 12/18/19 03:20 Ativan Inj 2 Mg/1 Ml Vial IV 12/25/19 03:19 Q4HP PRN ANXIETY/AGITATION Magnesium Hydroxide 30 ml 08/05/20 03:20 Milk Of Magnesia 30 Ml Udcup PO 01/17/20 03:19 HSP PRN FOR CONSTIPATION Melatonin 5 mg 12/18/19 03:20 Melatonin 5 Mg Tablet PO 01/17/20 03:19 HSP PRN SLEEP OR INSOMNIA Metoprolol Succinate 100 mg 12/18/19 11:00 12/18/19 10:32 Toprol Xl 50 Mg Tab.Sr PO 01/17/20 10:59 100 mg DAILY JUAN R Administration Metoprolol Tartrate 5 mg 12/18/19 05:18 Lopressor Inj/Pf 5 Mg/5 Ml Sdv IV 01/17/20 05:17 Q4HP PRN Give For Sbp > 160 / Dbp > 100 Morphine Sulfate 2 mg 12/18/19 03:50 Morphine 10 Mg/Ml Inj IV 12/25/19 03:49 Q2HP PRN PAIN SCALE OF 2 Morphine Sulfate 3 mg 12/18/19 03:51 Morphine 10 Mg/Ml Inj IV 12/25/19 03:50 Q2HP PRN FOR PAIN SCALE 3-4 Morphine Sulfate 4 mg 12/18/19 03:51 Morphine 10 Mg/Ml Inj IV 12/25/19 03:50 Q2HP PRN PAIN SCALE OF 5 Multivitamins 1 tab 12/19/19 10:00 Tab-A-Ernesto (Multiple Vitamin) Tablet PO 01/18/20 09:59 DAILY [facility] Ondansetron HCl 4 mg 12/18/19 03:26 Zofran Inj/Pf 4 Mg/2 Ml Sdv IV 01/17/20 03:25 Q4HP PRN FOR NAUSEA/VOMITING Simvastatin 40 mg 12/19/19 10:00 Zocor 40 Mg Tablet PO 01/18/20 09:59 DAILY [facility] Sodium Chloride 2.5 ml 12/18/19 06:00 12/19/19 06:10 Saline Flush 2.5 Ml Monoject Prefil Syrin IV 01/17/20 05:59 Not Given Q8 JUAN R Discontinued Medications Generic Name Dose Route Start Last Admin Trade Name Freq PRN Reason Stop Dose Admin Famotidine 20 mg 12/18/19 04:00 12/18/19 06:32 Pepcid 20 Mg Tablet PO 12/18/19 04:01 Not Given NOW ONE Famotidine Confirm 12/18/19 06:31 12/18/19 06:43 Pepcid 20 Mg Tablet Administered 12/18/19 06:32 Not Given Dose 20 mg .ROUTE .STK-MED ONE Sodium Chloride 1,000 mls @ 0 mls/hr 12/17/19 19:20 12/17/19 21:51 Nacl 0.9% 1000 Ml Iv Soln IV 12/17/19 19:21 Infused BOLUS ONE Infusion Wide Open Dextrose/Lactated Ringer's 1,000 mls @ 250 mls/hr 12/18/19 05:17 12/18/19 11:30 D5lr 1000 Ml Iv Soln IV Infused CONTINUOUS PRN Infusion THIS MED IS NOT "PRN" Morphine Sulfate 2 - 4 mg 12/18/19 03:20 Morphine 10 Mg/Ml Inj IV 12/25/19 03:19 Q2HP PRN See protocol Protocol Assessment & Plan - Diagnosis (1) Troponin I above reference range Plan: 79-year-old male with cardiac risk factors of age, gender, hypertension and hyperlipidemia who was admitted for evaluation of generalized weakness and who has remained asymptomatic since admission. His cardiac troponins are detectable however in the indeterminate range and flat. Of note, the patient exercises on his treadmill for up to 30 minutes every day at a regular pace without any angina, anginal equivalents or heart failure symptoms. His echocardiogram demonstrated a normal LVSF without regional wall motion abnormalities among other findings. His exercise stress test today was submaximal and the test was stopped due to lower extremity tiredness however there was no ischemic changes or symptoms at the achieved workload. Recommendations: -Continue with primary prevention measures. -No class I indication for further ischemic work-up at this point. -Cardiology will sign off the case for now.
--- NOTE | 2019-12-19 14:36 | DRAGON STRESS TEST REPORT ---
Name: Valentin Barbosa : [birth year] Date: 12/19/19 The patient underwent treadmill exercise using the Modified Elan protocol, completing 10:01 minutes and completing an estimated workload of 7.0 metabolic equivalents (METS). The test was terminated due to lower extremity fatigue. The heart rate was 68 beats per minute at baseline and increased to 96 beats at peak exercise, which was 67% of the maximum predicted heart rate. The rest blood pressure was 159/89 mm/Hg and increased to 175/80 mm/Hg, which is a normal response. The patient complained of no symptoms during the procedure. The resting electrocardiogram demonstrated NSR and did not show ST-segment changes consistent with ischemia. Impression -Submaximal exercise stress test using the Modified Elan protocol. -Electrically and symptomatically negative for ischemia at the achieved workload. -Resting hypertension. -Mildly decreased exercise tolerance. MTDD
--- NOTE | 2019-12-19 14:59 | PDOC DISCHARGE SUMMARY ---
Impression - Admit/DC Date/PCP Admission Date/Primary Care Provider: 12/18/19 03:11 KWASI VILLALPANDO Discharge Date: 12/19/19 - Discharge Diagnosis (1) Weakness Is this a current diagnosis for this admission?: Yes (2) Elevated troponin Is this a current diagnosis for this admission?: Yes (3) Hypertension Is this a current diagnosis for this admission?: Yes (4) Dyslipidemia Is this a current diagnosis for this admission?: Yes (5) Hypothyroidism Is this a current diagnosis for this admission?: Yes (6) Hyponatremia Is this a current diagnosis for this admission?: Yes (7) Hyperglycemia Is this a current diagnosis for this admission?: Yes (8) Thrombocytopenia Is this a current diagnosis for this admission?: Yes - Additional Information Resuscitation Status: Full Code Discharge Diet: Cardiac Discharge Activity: Activity As Tolerated Referrals: HAKEEM GONZALEZ MD [ACTIVE PROVISIONAL STAFF] - 12/31/19 1:30 pm Home Medications: Levothyroxine Sodium [Levo-T] 25 mcg PO DAILY 12/15/19 Metoprolol Succinate 100 mg PO DAILY 12/15/19 Simvastatin 40 mg PO DAILY 12/15/19 Ascorbic Acid [Vitamin C 500 mg Tablet] 500 mg PO DAILY 12/18/19 Cholecalciferol (Vitamin D3) [Vitamin D3 1000 Unit Tablet] 1,000 unit PO DAILY 12/18/19 Multivitamin [Tab-A-Ernesto (Multiple Vitamin) Tablet] 1 tab PO DAILY 12/18/19 History of Present Illiness History of Present Illness: BRENNAN JAY is a 79 year old male with PMH significant for HTN and dyslipidemia who presented to the ED with complaints of a 1 week history of generalized weakness. The weakness was of gradual onset but got progressively worse over the preceding days prior to presentation. Of note, there were no focal weaknesses noted. Additionally, he reported that he had had intermittent episodes of fever. 2 days prior to this presentation he was in the ED for similar symptoms. At that time he was tested for COVID-19 which was negative. Upon return to the ED a chest x-ray was completed which showed no acute abnormality. He did not complain of any chest discomfort however a troponin was obtained in the ED which was slightly elevated. The hospitalist service was consulted to admit the patient for further evaluation and treatment. Hospital Course Hospital Course: Subsequent serum troponins remained slightly elevated and a cardiology consultation was requested. There were no acute ST/T wave changes noted on the EKG. An echocardiogram was completed which revealed normal LV function with an LVEF of 65 to 70%. Normal RV function abd trace MR. Given the slight elevation in troponin it was decided by cardiology that the patient would benefit from stress test. He was taken to the stress lab on 12/19/2019 where he underwent a treadmill exercise stress test. The stress test was electrically and symptomatically negative for ischemia. He did have mildly decreased exercise tolerance. After review of findings the patient was cleared for discharge by cardiology. Physical Exam Vital Signs: Temp Pulse Resp BP Pulse Ox 97.6 F 68 19 132/68 H 99 12/19/19 08:08 12/19/19 08:08 12/19/19 08:08 12/19/19 08:08 12/19/19 08:08 Intake & Output 12/18/19 12/19/19 12/20/19 06:59 06:59 06:59 Intake Total 1240 2150 Output Total 150 Balance 1240 2000 Weight 72.4 kg 72.4 kg General appearance: PRESENT: no acute distress, cooperative, well-developed, well-nourished Head exam: PRESENT: atraumatic, normocephalic Eye exam: PRESENT: conjunctiva pink Mouth exam: PRESENT: moist, tongue midline Neck exam: ABSENT: JVD Respiratory exam: PRESENT: clear to auscultation darinel, symmetrical, unlabored. ABSENT: accessory muscle use Cardiovascular exam: PRESENT: RRR, +S1, +S2 Pulses: PRESENT: normal radial pulses Vascular exam: PRESENT: normal capillary refill GI/Abdominal exam: PRESENT: normal bowel sounds, soft. ABSENT: distended, tenderness Rectal exam: PRESENT: deferred Extremities exam: ABSENT: calf tenderness, pedal edema Neurological exam: PRESENT: alert, oriented to person, oriented to place, oriented to time, oriented to situation, CN II-XII grossly intact. ABSENT: motor sensory deficit Psychiatric exam: PRESENT: appropriate affect, normal mood. ABSENT: agitated, anxious Skin exam: PRESENT: dry, normal color, warm Results Laboratory Results: WBC 4.8 10^3/uL (4.0-10.5) 12/19/19 07:30 RBC 4.82 10^6/uL (4.35-5.55) 12/19/19 07:30 Hgb 15.1 g/dL (13.5-17.0) 12/19/19 07:30 Hct 43.8 % (37.9-51.0) 12/19/19 07:30 MCV 91 fl (80-97) 12/19/19 07:30 MCH 31.3 pg (27.0-33.4) 12/19/19 07:30 MCHC 34.4 g/dL (32.0-36.0) 12/19/19 07:30 RDW 14.2 % (11.5-14.0) H 12/19/19 07:30 Plt Count 161 10^3/uL (150-450) 12/19/19 07:30 Lymph % (Auto) 9.6 % (13-45) L 12/17/19 22:33 [place] % (Auto) 7.6 % (3-13) 12/17/19 22:33 Eos % (Auto) 2.3 % (0-6) 12/17/19: Baso % (Auto) 0.5 % (0-2) 12/17/19 22:33 Absolute Neuts (auto) 5.6 10^3/uL (1.7-8.2) 12/17/19 22:33 Absolute Lymphs (auto) 0.7 10^3/uL (0.5-4.7) 12/17/19 22:33 Absolute Monos (auto) 0.5 10^3/uL (0.1-1.4) 12/17/19 22:33 Absolute Eos (auto) 0.2 10^3/uL (0.0-0.6) 12/17/19 22:33 Absolute Basos (auto) 0.0 10^3/uL (0.0-0.2) 12/17/19 22:33 Seg Neutrophils % 80.0 % (42-78) H 12/17/19 22:33 Platelet Estimate Cancelled 12/17/19 20:35 PT 13.3 SEC (11.4-15.4) 12/17/19 20:35 INR 0.99 12/17/19 20:35 Sodium 138.5 mmol/L (137-145) 12/19/19 07:30 Potassium 3.4 mmol/L (3.6-5.0) L 12/19/19 07:30 Chloride 104 mmol/L (98-107) 12/19/19 07:30 Carbon Dioxide 27 mmol/L (22-30) 12/19/19 07:30 Anion Gap 8 (5-19) 12/19/19 07:30 BUN 12 mg/dL (7-20) 12/19/19 07:30 Creatinine 0.70 mg/dL (0.52-1.25) 12/19/19 07:30 Est GFR ( Amer) > 60 (>60) 12/19/19 07:30 Est GFR (Non-Af Amer) Cancelled 12/17/19 20:35 Est GFR (MDRD) Non-Af > 60 (>60) 12/19/19 07:30 Glucose 92 mg/dL (75-110) 12/19/19 07:30 Calcium 8.7 mg/dL (8.4-10.2) 12/19/19 07:30 Magnesium 2.1 mg/dL (1.6-2.3) 12/19/19 07:30 Total Bilirubin 0.5 mg/dL (0.2-1.3) 12/19/19 07:30 Direct Bilirubin 0.0 mg/dL (0.0-0.4) 12/19/19 07:30 Neonat Total Bilirubin Not Reportable 12/19/19 07:30 Neonat Direct Bilirubin Not Reportable 12/19/19 07:30 Neonat Indirect Bili Not Reportable 12/19/19 07:30 AST 97 U/L (17-59) H 12/19/19 07:30 ALT 89 U/L (<50) H 12/19/19 07:30 Alkaline Phosphatase 68 U/L (38-126) 12/19/19 07:30 Creatine Kinase 139 U/L (55-170) 12/18/19 19:28 CK-MB (CK-2) 1.08 ng/mL (<4.55) 12/18/19 19:28 Troponin I 0.037 ng/mL 12/19/19 07:30 NT-Pro-B Natriuret Pep 746 pg/mL (<450) H 12/17/19 20:35 Total Protein 6.2 g/dL (6.3-8.2) L 12/19/19 07:30 Albumin 3.3 g/dL (3.5-5.0) L 12/19/19 07:30 Triglycerides 311 mg/dL (<150) H 12/18/19 07:30 Cholesterol 97.76 mg/dL (0-200) 12/18/19 07:30 LDL Cholesterol Direct < 30 mg/dL (<100) 12/18/19 07:30 VLDL Cholesterol 62.2 mg/dL (10-31) H 12/18/19 07:30 HDL Cholesterol 8 mg/dL (>40) L 12/18/19 07:30 EGFR Cancelled 12/17/19 20:35 TSH 2.49 uIU/mL (0.47-4.68) 12/18/19 07:30 Free T3 pg/mL 2.42 pg/mL (2.77-5.27) L 12/18/19 07:30 Urine Color YELLOW 12/17/19 20:35 Urine Appearance SLIGHTLY-CLOUDY 12/17/19 20:35 Urine pH 5.0 (5.0-9.0) 12/17/19 20:35 Ur Specific [place] 1.021 12/17/19 20:35 Urine Protein 100 mg/dL (NEGATIVE) H 12/17/19 20:35 Urine Glucose (UA) NEGATIVE mg/dL (NEGATIVE) 12/17/19 20:35 Urine Ketones NEGATIVE mg/dL (NEGATIVE) 12/17/19 20:35 Urine Blood NEGATIVE (NEGATIVE) 12/17/19 20:35 Urine Nitrite NEGATIVE (NEGATIVE) 12/17/19 20:35 Urine Bilirubin NEGATIVE (NEGATIVE) 12/17/19 20:35 Urine Urobilinogen NEGATIVE mg/dL (<2.0) 12/17/19 20:35 Ur Leukocyte Esterase NEGATIVE (NEGATIVE) 12/17/19 20:35 Urine WBC (Auto) 4 /HPF 12/17/19 20:35 Urine RBC (Auto) 6 /HPF 12/17/19 20:35 U Hyaline Cast (Auto) 1 /LPF 12/17/19 20:35 Squamous Epi Cells Auto <1 /HPF 12/17/19 20:35 Urine Mucus (Auto) MANY /LPF 12/17/19 20:35 Urine Ascorbic Acid 40 (NEGATIVE) H 12/17/19 20:35 Slides for Path Review Cancelled 12/17/19 20:35 12/17/19 12/18/19 12/18/19 20:35 01:12 07:30 CK-MB (CK-2) 1.86 1.67 Troponin I 0.039 0.045 0.055 NT-Pro-B Natriuret Pep 746 H 12/18/19 12/18/19 12/18/19 13:53 18:39 19:28 CK-MB (CK-2) 1.12 1.08 Troponin I 0.057 0.058 0.059 NT-Pro-B Natriuret Pep 12/19/19 12/19/19 01:27 07:30 CK-MB (CK-2) Troponin I 0.054 0.037 NT-Pro-B Natriuret Pep Impressions: Chest X-Ray 12/17/19 19:20 IMPRESSION: No acute abnormality is identified. Plan Plan of Treatment: Follow-up with primary care provider within 1 week of discharge. Return to the ED for fever greater than 101 Stroke Is this a Stroke Patient?: No Acute Heart Failure - Is this a Heart Failure Patient?: No
[2019-12-19 16:25] VITALS: BP 155/76
[2019-12-20] MEDS ORDERED: SIMVASTATIN 40 MG TABLET PO SCH (22:00)
== END 2019-12-19 16:30 | disposition home or self-care (01) ==
LOC: ER 15:35 → EH 12-18 03:11 → 4N 12-18 03:50
PROVIDERS: ADMIT Emergency Medicine; ATTEND Nurse Practitioner
DX: R53.1 Weakness (principal); R79.89 Other specified abnormal findings of blood chemistry; I10 Essential (primary) hypertension; E78.5 Hyperlipidemia, unspecified; E03.9 Hypothyroidism, unspecified; E87.1 Hypo-osmolality and hyponatremia; D69.6 Thrombocytopenia, unspecified; R73.9 Hyperglycemia, unspecified; Z79.899 Other long term (current) drug therapy; Z87.891 Personal history of nicotine dependence; Z88.4 Allergy status to anesthetic agent
CPT/HCPCS: 99285; 96360; 36415 ×3; 87086; 82553 ×2; 82550 ×2; 83735 ×2; 84443; 85025; 85027 ×2; 85610; 80076 ×2; 80048 ×2; 80053; 81001; 84484 ×3; 84481; 80061; 83880; 93306; 93017; 71045; A9270 ×10; J3490; J7121; J7030; G0378